=== PATIENT | female | born 1990 | race Caucasian/White ===

== ENCOUNTER → 2016-07-31 | Outpatient (CLI) | payer OTHER ==
[~2016-07-31] MED LIST: /AUGM875TA OR; /CELE20CA OR; /ESCI20TA OR; VICO5TAB OR
== END ==
LOC: M WUC 18:55
PROVIDERS: ATTEND Physician Assistant
DX: N91.1 Secondary amenorrhea (principal)

== ENCOUNTER 2016-08-07 16:47 | Emergency (ER) | payer OTHER ==
[2016-08-07] MEDS ORDERED: diphenhydrAMINE INJ 50MG/ML VIAL (J1200) As Ordered ONE (18:31)
[2016-08-07] MEDS ORDERED: dexameTHASONE 4 MG/ML 1ML VIAL (J1100) As Ordered ONE (18:31)
[2016-08-07] MEDS ORDERED: METOCLOPRAMIDE INJ 10MG/2ML VIAL (J2765) As Ordered ONE (18:31)
[2016-08-07 18:43] LABS: BASO # 0.1 K/mm3 (0.0-0.2); BASO % 1.1 % (0.0-1.0); EOS # 0.2 K/mm3 (0.0-0.50); EOS % 2.7 % (0.0-3.0); LARGE UNSTAINED CELL # 0.3 K/mm3 (0.0-0.4); LARGE UNSTAINED CELL % 3.2 % (0.0-4.0); LYMPH # 3.6 K/mm3 (1.5-6.5); LYMPH % 45.7 % (24.0-44.0); MEAN CORPUSCULAR HEMOGLOBIN 28.2 pg (27.0-33.0); MEAN CORPUSCULAR HGB CONC 34.2 g/dl (32.0-36.5); MEAN CORPUSCULAR VOLUME 82.4 fl (80.0-96.0); MONO # 0.3 K/mm3 (0.0-0.8); MONO % 3.6 % (0.0-5.0); NEUTROPHILS # 3.4 K/mm3 (1.8-7.7); NEUTROPHILS % 43.7 % (36.0-66.0); PLATELET COUNT, AUTOMATED 226 k/mm3 (150-450); RED CELL DISTRIBUTION WIDTH 12.7 % (11.5-14.5); WHITE BLOOD COUNT 7.9 K/mm3 (4.0-10.0)
[2016-08-07 19:04] LABS: ANION GAP 8 MEQ/L (8-16); BLOOD UREA NITROGEN 12 MG/DL (7-18); CALCIUM LEVEL 9.3 MG/DL (8.5-10.1); CARBON DIOXIDE LEVEL 28 MEQ/L (21-32); CHLORIDE LEVEL 105 MEQ/L (98-107); CREATININE FOR GFR 0.76 MG/DL (0.55-1.02); GLOMERULAR FILTRATION RATE > 60.0 (>60); GLUCOSE, FASTING 106 MG/DL (70-105); POTASSIUM SERUM 3.7 MEQ/L (3.5-5.1); SODIUM LEVEL 141 MEQ/L (136-145)
[2016-08-07 19:31] LABS: ERYTHROCYTE SEDIMENTATION RATE 7 mm/hr (0-20)
--- NOTE | 2016-08-07 19:44 | EDDOCDS ---
Physician Documentation [facility] Name: Luis Elizondo Age: 26 yrs Sex: Female : 1990 Arrival Date: 08/07/2016 Time: 16:47 Bed I2 / M2 Private MD: Art Mann Disposition: 08/07/16 19:33 Discharged to Home/Self Care. Impression: Headache. - Condition is Stable. - Discharge Instructions: General Headache Without Cause. - Medication Reconciliation, Local Pharmacy Hours form. - Follow up: Art Mann; When: 1 - 2 days; Reason: Recheck today's complaints, Continuance of care. Follow up: Carli Simeon MD; When: 1 - 2 days; Reason: Recheck today's complaints, Continuance of care. - Problem is new. - Symptoms have improved. - Notes: PLEASE FOLLOW UP WITH YOUR DOCTOR, RETURN TO THE ER IF THE SYMPTOMS WORSEN OR BECOME CONCERNING Historical: - Allergies: no known allergies; - Home Meds: 1. amoxicillin 875 mg oral tab 1 tab every 12 hours 2. migraine med unknown - PMHx: none; - PSHx: (September 21, 2011); Appendectomy; - Social history: Smoking status: Patient states was never smoker of tobacco. No barriers to communication noted, The patient speaks fluent Scottish. - Family history: Not pertinent. - : The pt / caregiver states he / she is not on anticoagulants. Home medication list is obtained from the patient. - Exposure Risk Screening:: None identified. 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 6 in. (167.64 cm) (R); Pain 8/10; 19:25 BP 101 / 59; Pulse 73; Resp 18; Temp 97.5(T); Pulse Ox 100% on R/A; Pain 2/10; lf1 16:49 Body Mass Index 26.63 (74.84 kg, 167.64 cm) ct3 MDM: 18:19 IV Saline Lock ordered. ck7 18:19 NS 0.9% 1000 ml IV at bolus once ordered. ck7 18:19 Metoclopramide 10 mg IV at 40 mg/hr once over 15 mins ordered. ck7 18:19 diphenhydrAMINE 50 mg IVP once ordered. ck7 18:19 Dexamethasone 8 mg IV at bolus once ordered. ck7 18:20 CT Head Without Contrast Ordered. EDMS 18:20 CBC with Diff Ordered. EDMS 18:20 MED Profile Ordered. EDMS 18:20 ESR Ordered. EDMS 18:20 CRP Ordered. EDMS 18:55 Financial registration complete. zo 19:11 CBC with Diff Reviewed. ck7 19:11 MED Profile Reviewed. ck7 19:11 CRP Reviewed. ck7 19:12 ESR Reviewed. ck7 19:18 [facility] [place] Agreement was scanned into [employer] and attached to record. zo 19:33 CBC with Diff Reviewed. ck7 19:33 ESR Reviewed. ck7 Administered Medications: 18:45 Drug: NS 0.9% 1000 ml [sodium chloride 0.9 % intravenous solution] Route: IV; Rate: mk4 bolus; Site: right antecubital; 19:41 Follow up: IV Status: Completed infusion; IV Intake: 1000ml ld5 18:45 Drug: diphenhydrAMINE 50 mg [diphenhydramine 50 mg/mL injection solution (1 mL)] Route: mk4 IVP; Site: right antecubital; 19:29 Follow up: Response: Pain is decreased lf1 18:45 Drug: Dexamethasone 8 mg [dexamethasone 4 mg/mL injection solution] Route: IV; Rate: mk4 bolus; Site: right antecubital; 19:28 Follow up: Response: Pain is decreased lf1 19:43 Follow up: IV Status: Completed infusion ld5 18:46 Drug: Metoclopramide 10 mg [metoclopramide 5 mg/mL injection solution] Route: IV; Rate: mk4 40 mg/hr; Infused Over: 15 mins; Site: right antecubital; 19:29 Follow up: Response: Nausea is decreased; IV Status: Completed infusion; IV Intake: 19alfm1 Signatures: Dispatcher [employer] EDMS Nehal eMlgar Lisa, RN RN lf1 Kalyani Cruz RN RN rs3 Clarisse Enrique RN RN ld5 Thomas Mujica, GURDEEP-C RPA-Cck7 Hayley Cabrera RN mk4 The chart was reviewed and I authenticate all verbal orders and agree with the evaluation and treatment provided.Attachments: 19:18 [facility] [place] Payment Agreement zo MTDD
--- NOTE | 2016-08-07 19:44 | EDDOCDS ---
Nurse's Notes [facility] Name: Luis Elizondo Age: 26 yrs Sex: Female : 1990 Arrival Date: 08/07/2016 Time: 16:47 Bed I2 / M2 Private MD: Art Mann Diagnosis: Headache Presentation: 08/07 16:52 Presenting complaint: Patient states: headache, vomiting for 2 weeks. Was seen at rs3 urgent given amoxicillin 10 days ago. was seen by primary Thursday. given migraine medicine with no symptom relief. Adult Sepsis Screening: The patient does not have new or worsening altered mentation. Patient's respiratory rate is less than 22. Systolic blood pressure is greater than 100. Patient has a qSOFA score of 0- Negative Sepsis Screen. Suicide/Homicide risk assessment- the patient denies having any suicidal and/or homicidal ideations and does not present with any other emotional, behavioral or mental health complaints. Status: Patient is not a industrial servicer or dependent. Transition of care: patient was not received from another setting of care. 16:52 Acuity: CHRISTINE Level 4 rs3 16:52 Method Of Arrival: Walkin/Carried/Asstd rs3 Triage Assessment: 16:55 General: Appears in no apparent distress. Pain: Location: forehead. Pt Declines HIV rs3 testing. 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 amoxicillin 875 mg oral tab 1 tab every 12 hours 2. migraine med unknown - PMHx: none; - PSHx: (September 21, 2011); Appendectomy; - Social history: Smoking status: Patient states was never smoker of tobacco. No barriers to communication noted, The patient speaks fluent Vietnamese. - Family history: Not pertinent. - : The pt / caregiver states he / she is not on anticoagulants. Home medication list is obtained from the patient. - Exposure Risk Screening:: None identified. Screenin:25 Screening information is obtained from the patient. Fall risk: No risks identified. lf1 19:39 Assistance ADL's: requires no assistance with activities of daily living. Abuse/DV ld5 Screen: The patient / caregiver reports he/she is: not in a situation that causes fear, pain or injury. Nutritional screening: No deficits noted. Advance Directives: There is no active DNR order. home support is adequate. Assessment: 19:25 Adult Sepsis Screening: The patient does not have new or worsening altered mentation. lf1 Patient's respiratory rate is less than 22. Systolic blood pressure is greater than 100. Patient has a qSOFA score of 0- Negative Sepsis Screen. General: Appears in no apparent distress, comfortable, Behavior is cooperative, First patient contact. Pain: Location: forehead Pain currently is 2 out of 10 on a pain scale. Neurological: Level of Consciousness is awake, alert, Oriented to person, place, time, Reports headache. EENT: No deficits noted. Respiratory: Respiratory effort is even, unlabored. GI: Denies vomiting, reports nausea has improved. : No deficits noted. Derm: Skin is normal. 19:39 General: Appears in no apparent distress, Behavior is cooperative, pleasant. Pain: ld5 Location: forehead Pain currently is 2 out of 10 on a pain scale. Neurological: Level of Consciousness is awake, alert, obeys commands. Respiratory: Airway is patent Respiratory effort is even, unlabored. GI: Denies nausea, vomiting. Vital Signs: 16:49 BP 106 / 68; Pulse 80; Resp 18; Temp 98.3(O); Pulse Ox 100% on R/A; Weight 74.84 kg ct3 (R); Height 5 ft. 6 in. (167.64 cm) (R); Pain 8/10; 19:25 BP 101 / 59; Pulse 73; Resp 18; Temp 97.5(T); Pulse Ox 100% on R/A; Pain 2/10; lf1 16:49 Body Mass Index 26.63 (74.84 kg, 167.64 cm) ct3 Vitals: 16:49 Log In Time: August 07, 2016 at 16:48. ct3 ED Course: 16:49 Patient visited by Nithya Edwards, LADONNA. ct3 16:49 Art Mann is Private Physician. ct3 16:49 Patient moved to Waiting ct3 16:50 Patient moved to Pre RCE ct3 16:54 Triage Initiated rs3 17:24 Patient moved to Triage 3 ck1 17:25 Patient moved to Pre RCE ck1 18:04 Patient visited by Gladys Guallpa, LADONNA. jb5 18:04 Patient moved to Triage 1 jb5 18:09 [facility] ck7 18:10 Moy Espinosa MD is Attending Physician. ck7 18:10 Patient visited by Thomas Mujica RPA-C. ck7 18:22 Patient moved to I2 / M2 jb5 18:37 Patient visited by Pa Hough RN. mlb1 18:37 CRP Sent. mlb1 18:37 ESR Sent. mlb1 18:37 MED Profile Sent. mlb1 18:37 CBC with Diff Sent. mlb1 18:37 Inserted saline lock: 20 gauge in right antecubital area and blood collected. The mlb1 patient tolerated the procedure well. Labs drawn. (by ED staff). Sent per order to lab. 19:08 Patient visited by Hayley Cabrera RN. mk4 19:18 [facility] Payment Agreement was scanned into [employer] and attached to record. zo 19:25 The patient / caregiver is instructed regarding the plan of care and ED course. Door lf1 closed. Lights dimmed. 19:28 Patient name changed from Luis\S\\S\Kempney\S\ to Luis\S\ \S\Juanmpney. EDMS 19:30 Patient visited by Nayla Ruelas RN. lf1 19:32 Art Mann is Referral Physician. ck7 19:32 Carli Simeon MD is Referral Physician. ck7 19:39 Discontinued lock intact, bleeding controlled, pressure dressing applied, No ld5 redness/swelling at site. No procedures done that require assistance. 19:43 Patient visited by Clarisse Enrique RN. ld5 Administered Medications: 18:45 Drug: NS 0.9% 1000 ml [sodium chloride 0.9 % intravenous solution] Route: IV; Rate: mk4 bolus; Site: right antecubital; 19:41 Follow up: IV Status: Completed infusion; IV Intake: 1000ml ld5 18:45 Drug: diphenhydrAMINE 50 mg [diphenhydramine 50 mg/mL injection solution (1 mL)] Route: mk4 IVP; Site: right antecubital; 19:29 Follow up: Response: Pain is decreased lf1 18:45 Drug: Dexamethasone 8 mg [dexamethasone 4 mg/mL injection solution] Route: IV; Rate: mk4 bolus; Site: right antecubital; 19:28 Follow up: Response: Pain is decreased lf1 19:43 Follow up: IV Status: Completed infusion ld5 18:46 Drug: Metoclopramide 10 mg [metoclopramide 5 mg/mL injection solution] Route: IV; Rate: mk4 40 mg/hr; Infused Over: 15 mins; Site: right antecubital; 19:29 Follow up: Response: Nausea is decreased; IV Status: Completed infusion; IV Intake: 78lccp0 Intake: 19:29 IV: 10.00ml; Total: 10.00ml. lf1 19:41 IV: 1000.00ml; Total: 1010.00ml. ld5 Order Results: Lab Order: CBC with Diff; SPEC'M 08/07/16 18:36 Test: WHITE BLOOD COUNT; Value: 7.9; Range: 4.0-10.0; Units: K/mm3; Status: F Test: RED BLOOD COUNT; Value: 5.16; Range: 4.00-5.40; Units: M/mm3; Status: F Test: HEMOGLOBIN; Value: 14.5; Range: 12.0-16.0; Units: g/dl; Status: F Test: HEMATOCRIT; Value: 42.5; Range: 36.0-47.0; Units: %; Status: F Test: MEAN CORPUSCULAR VOLUME; Value: 82.4; Range: 80.0-96.0; Units: fl; Status: F Test: MEAN CORPUSCULAR HEMOGLOBIN; Value: 28.2; Range: 27.0-33.0; Units: pg; Status: F Test: MEAN CORPUSCULAR HGB CONC; Value: 34.2; Range: 32.0-36.5; Units: g/dl; Status: F Test: RED CELL DISTRIBUTION WIDTH; Value: 12.7; Range: 11.5-14.5; Units: %; Status: F Test: PLATELET COUNT, AUTOMATED; Value: 226; Range: 150-450; Units: k/mm3; Status: F Test: NEUTROPHILS %; Value: 43.7; Range: 36.0-66.0; Units: %; Status: F Test: LYMPH %; Value: 45.7; Range: 24.0-44.0; Abnormal: Above high normal; Units: %; Status: F Test: MONO %; Value: 3.6; Range: 0.0-5.0; Units: %; Status: F Test: EOS %; Value: 2.7; Range: 0.0-3.0; Units: %; Status: F Test: BASO %; Value: 1.1; Range: 0.0-1.0; Abnormal: Above high normal; Units: %; Status: F Test: LARGE UNSTAINED CELL %; Value: 3.2; Range: 0.0-4.0; Units: %; Status: F Test: NEUTROPHILS #; Value: 3.4; Range: 1.8-7.7; Units: K/mm3; Status: F Test: LYMPH #; Value: 3.6; Range: 1.5-6.5; Units: K/mm3; Status: F Test: MONO #; Value: 0.3; Range: 0.0-0.8; Units: K/mm3; Status: F Test: EOS #; Value: 0.2; Range: 0.0-0.50; Units: K/mm3; Status: F Test: BASO #; Value: 0.1; Range: 0.0-0.2; Units: K/mm3; Status: F Test: LARGE UNSTAINED CELL #; Value: 0.3; Range: 0.0-0.4; Units: K/mm3; Status: F Lab Order: MED Profile; [facility]M 08/07/16 18:36 Test: GLUCOSE, FASTING; Value: 106; Range: 70-105; Abnormal: Above high normal; Units: MG/DL; Status: F Test: BLOOD UREA NITROGEN; Value: 12; Range: 7-18; Units: MG/DL; Status: F Test: CREATININE FOR GFR; Value: 0.76; Range: 0.55-1.02; Units: MG/DL; Status: F Test: GLOMERULAR FILTRATION RATE; Value: > 60.0; Range: >60; Status: F Test: SODIUM LEVEL; Value: 141; Range: 136-145; Units: MEQ/L; Status: F Test: POTASSIUM SERUM; Value: 3.7; Range: 3.5-5.1; Units: MEQ/L; Status: F Test: CHLORIDE LEVEL; Value: 105; Range: 98-107; Units: MEQ/L; Status: F Test: CARBON DIOXIDE LEVEL; Value: 28; Range: 21-32; Units: MEQ/L; Status: F Test: ANION GAP; Value: 8; Range: 8-16; Units: MEQ/L; Status: F Test: CALCIUM LEVEL; Value: 9.3; Range: 8.5-10.1; Units: MG/DL; Status: F Test Note: ; Units are mL/min/1.73 m2 Chronic Kidney Disease Staging per NKF: Stage I & II GFR >=60 Normal to Mildly Decreased Stage III GFR 30-59 Moderately Decreased Stage IV GFR 15-29 Severely Decreased Stage V GFR <15 Very Little GFR Left ESRD GFR <15 on [employer]IN[employer]OULTRY Lab Order: ESR; SPEC'M 08/07/16 18:36 Test: ERYTHROCYTE SEDIMENTATION RATE; Value: 7; Range: 0-20; Units: mm/hr; Status: F Lab Order: CRP; SPEC'M 08/07/16 18:36 Test: C REACTIVE PROTEIN QUANTITATIV; Value: < 0.30; Range: 0.00-0.30; Units: MG/DL; Status: F Outcome: 19:33 Discharge ordered by Provider. ck7 19:39 Discharge Assessment: Patient awake, alert and oriented x 3. No cognitive and/or ld5 functional deficits noted. Patient verbalized understanding of disposition instructions. patient administered narcotics - no. The following High Risk Discharge criteria are identified: None. Discharged to home ambulatory. Condition: stable. Discharge instructions given to patient, Instructed on discharge instructions, follow up and referral plans. Demonstrated understanding of instructions, Pt was receptive of discharge instructions/ teaching. No special radiology studies were completed. Property :Personal belongings accompany Pt. 19:43 Patient left the ED. ld5 Signatures: Dispatcher [employer] EDNH Pa Hough RN RN mlb1 Nyasia OliveiraRN RN ck1 Gladys Guallpa, CIVILIAN TECHNICIAN CIVILIAN TECHNICIAN jb5 Nehal Melgar LisaRN RN lf1 Kalyani Cruz RN RN rs3 Clarisse Enrique RN RN ld5 Nithya Edwards, CIVILIAN TECHNICIAN CIVILIAN TECHNICIAN ct3 Thomas Mujica, RPA-C RPA-Cck7 Hayley Cabrera RN RN mk4 MTDD
--- NOTE | 2016-08-08 08:06 | REP ---
Clinical: Headache . Comparison: None . Findings: The ventricles, sulci, and cisterns are normal in position and appearance. Cha-white differentiation is maintained. No acute intracranial hemorrhage, mass/mass effect, pathology or trauma/injury. No evidence for acute infarction. No extra-axial fluid collection. Calvarium is intact. Paranasal sinuses and mastoid air cells are clear. Impression: Normal noncontrast head CT. No evidence for acute intracranial pathology or trauma/injury. Signed by Ganesh Giron MD 08/08/2016 07:57 A
--- NOTE | 2016-08-09 20:44 | EDDOCDS ---
Physician Documentation [facility] Name: Luis Elizondo Age: 26 yrs Sex: Female : 1990 Arrival Date: 08/07/2016 Time: 16:47 Bed I2 / M2 Private MD: Art Mann Disposition: 08/07/16 19:33 Discharged to Home/Self Care. Impression: Headache. - Condition is Stable. - Discharge Instructions: General Headache Without Cause. - Medication Reconciliation, Local Pharmacy Hours form. - Follow up: Art Mann; When: 1 - 2 days; Reason: Recheck today's complaints, Continuance of care. Follow up: Carli Simeon MD; When: 1 - 2 days; Reason: Recheck today's complaints, Continuance of care. - Problem is new. - Symptoms have improved. - Notes: PLEASE FOLLOW UP WITH YOUR DOCTOR, RETURN TO THE ER IF THE SYMPTOMS WORSEN OR BECOME CONCERNING Historical: - Allergies: no known allergies; - Home Meds: 1. amoxicillin 875 mg oral tab 1 tab every 12 hours 2. migraine med unknown - PMHx: none; - PSHx: (September 21, 2011); Appendectomy; - Social history: Smoking status: Patient states was never smoker of tobacco. No barriers to communication noted, The patient speaks fluent Barbadian. - Family history: Not pertinent. - : The pt / caregiver states he / she is not on anticoagulants. Home medication list is obtained from the patient. - Exposure Risk Screening:: None identified. 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 6 in. (167.64 cm) (R); Pain 8/10; 19:25 BP 101 / 59; Pulse 73; Resp 18; Temp 97.5(T); Pulse Ox 100% on R/A; Pain 2/10; lf1 16:49 Body Mass Index 26.63 (74.84 kg, 167.64 cm) ct3 MDM: 18:19 IV Saline Lock ordered. ck7 18:19 NS 0.9% 1000 ml IV at bolus once ordered. ck7 18:19 Metoclopramide 10 mg IV at 40 mg/hr once over 15 mins ordered. ck7 18:19 diphenhydrAMINE 50 mg IVP once ordered. ck7 18:19 Dexamethasone 8 mg IV at bolus once ordered. ck7 18:20 CT Head Without Contrast Ordered. EDMS 18:20 CBC with Diff Ordered. EDMS 18:20 MED Profile Ordered. EDMS 18:20 ESR Ordered. EDMS 18:20 CRP Ordered. EDMS 18:55 Financial registration complete. zo 19:11 CBC with Diff Reviewed. ck7 19:11 MED Profile Reviewed. ck7 19:11 CRP Reviewed. ck7 19:12 ESR Reviewed. ck7 19:18 [facility] [place] Agreement was scanned into [employer] and attached to record. zo 19:33 CBC with Diff Reviewed. ck7 19:33 ESR Reviewed. ck7 08/08 11:30 T-Sheet-- Draft Copy was scanned into [employer] and attached to record. gb 15:10 Radiology Report was scanned into [employer] and attached to record. gb Administered Medications: 08/07 18:45 Drug: NS 0.9% 1000 ml [sodium chloride 0.9 % intravenous solution] Route: IV; Rate: mk4 bolus; Site: right antecubital; 19:41 Follow up: IV Status: Completed infusion; IV Intake: 1000ml ld5 18:45 Drug: diphenhydrAMINE 50 mg [diphenhydramine 50 mg/mL injection solution (1 mL)] Route: mk4 IVP; Site: right antecubital; 19:29 Follow up: Response: Pain is decreased lf1 18:45 Drug: Dexamethasone 8 mg [dexamethasone 4 mg/mL injection solution] Route: IV; Rate: mk4 bolus; Site: right antecubital; 19:28 Follow up: Response: Pain is decreased lf1 19:43 Follow up: IV Status: Completed infusion ld5 18:46 Drug: Metoclopramide 10 mg [metoclopramide 5 mg/mL injection solution] Route: IV; Rate: mk4 40 mg/hr; Infused Over: 15 mins; Site: right antecubital; 19:29 Follow up: Response: Nausea is decreased; IV Status: Completed infusion; IV Intake: [id number] Signatures: Dispatcher [employer] EDMS Chrystal Saleh Reg Reg gb Nehal Melgar LisaRN RN lf1 Kalyani CruzRN RN rs3 Clarisse Enrique RN RN ld5 Thomas Mujica, RPA-C RPA-Cck7 Hayley Cabrera RN mk4 The chart was reviewed and I authenticate all verbal orders and agree with the evaluation and treatment provided.Attachments: 19:18 [facility] [place] Payment Agreement zo 08/08 11:30 T-Sheet-- Draft Copy gb Chart Complete MTDD
--- NOTE | 2016-08-09 20:44 | EDDOCDS ---
Nurse's Notes [facility] Name: Luis Elizondo Age: 26 yrs Sex: Female : 1990 Arrival Date: 08/07/2016 Time: 16:47 Bed I2 / M2 Private MD: Art Mann Diagnosis: Headache Presentation: 08/07 16:52 Presenting complaint: Patient states: headache, vomiting for 2 weeks. Was seen at rs3 urgent given amoxicillin 10 days ago. was seen by primary Thursday. given migraine medicine with no symptom relief. Adult Sepsis Screening: The patient does not have new or worsening altered mentation. Patient's respiratory rate is less than 22. Systolic blood pressure is greater than 100. Patient has a qSOFA score of 0- Negative Sepsis Screen. Suicide/Homicide risk assessment- the patient denies having any suicidal and/or homicidal ideations and does not present with any other emotional, behavioral or mental health complaints. Status: Patient is not a health service coordinator or dependent. Transition of care: patient was not received from another setting of care. 16:52 Acuity: CHRISTINE Level 4 rs3 16:52 Method Of Arrival: Walkin/Carried/Asstd rs3 Triage Assessment: 16:55 General: Appears in no apparent distress. Pain: Location: forehead. Pt Declines HIV rs3 testing. 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 amoxicillin 875 mg oral tab 1 tab every 12 hours 2. migraine med unknown - PMHx: none; - PSHx: (September 21, 2011); Appendectomy; - Social history: Smoking status: Patient states was never smoker of tobacco. No barriers to communication noted, The patient speaks fluent Slovenian. - Family history: Not pertinent. - : The pt / caregiver states he / she is not on anticoagulants. Home medication list is obtained from the patient. - Exposure Risk Screening:: None identified. Screenin:25 Screening information is obtained from the patient. Fall risk: No risks identified. lf1 19:39 Assistance ADL's: requires no assistance with activities of daily living. Abuse/DV ld5 Screen: The patient / caregiver reports he/she is: not in a situation that causes fear, pain or injury. Nutritional screening: No deficits noted. Advance Directives: There is no active DNR order. home support is adequate. Assessment: 19:25 Adult Sepsis Screening: The patient does not have new or worsening altered mentation. lf1 Patient's respiratory rate is less than 22. Systolic blood pressure is greater than 100. Patient has a qSOFA score of 0- Negative Sepsis Screen. General: Appears in no apparent distress, comfortable, Behavior is cooperative, First patient contact. Pain: Location: forehead Pain currently is 2 out of 10 on a pain scale. Neurological: Level of Consciousness is awake, alert, Oriented to person, place, time, Reports headache. EENT: No deficits noted. Respiratory: Respiratory effort is even, unlabored. GI: Denies vomiting, reports nausea has improved. : No deficits noted. Derm: Skin is normal. 19:39 General: Appears in no apparent distress, Behavior is cooperative, pleasant. Pain: ld5 Location: forehead Pain currently is 2 out of 10 on a pain scale. Neurological: Level of Consciousness is awake, alert, obeys commands. Respiratory: Airway is patent Respiratory effort is even, unlabored. GI: Denies nausea, vomiting. Vital Signs: 16:49 BP 106 / 68; Pulse 80; Resp 18; Temp 98.3(O); Pulse Ox 100% on R/A; Weight 74.84 kg ct3 (R); Height 5 ft. 6 in. (167.64 cm) (R); Pain 8/10; 19:25 BP 101 / 59; Pulse 73; Resp 18; Temp 97.5(T); Pulse Ox 100% on R/A; Pain 2/10; lf1 16:49 Body Mass Index 26.63 (74.84 kg, 167.64 cm) ct3 Vitals: 16:49 Log In Time: August 07, 2016 at 16:48. ct3 ED Course: 16:49 Patient visited by Nithya Edwards, LADONNA. ct3 16:49 Art Mann is Private Physician. ct3 16:49 Patient moved to Waiting ct3 16:50 Patient moved to Pre RCE ct3 16:54 Triage Initiated rs3 17:24 Patient moved to Triage 3 ck1 17:25 Patient moved to Pre RCE ck1 18:04 Patient visited by Gladys Guallpa, LADONNA. jb5 18:04 Patient moved to Triage 1 jb5 18:09 Thomas Mujica RPA-C is [facility]. ck7 18:10 Moy Espinosa MD is Attending Physician. ck7 18:10 Patient visited by Thomas Mujica RPA-C. ck7 18:22 Patient moved to I2 / M2 jb5 18:37 Patient visited by Pa Hough RN. mlb1 18:37 CRP Sent. mlb1 18:37 ESR Sent. mlb1 18:37 MED Profile Sent. mlb1 18:37 CBC with Diff Sent. mlb1 18:37 Inserted saline lock: 20 gauge in right antecubital area and blood collected. The mlb1 patient tolerated the procedure well. Labs drawn. (by ED staff). Sent per order to lab. 19:08 Patient visited by Hayley Cabrera RN. mk4 19:18 [facility] Payment Agreement was scanned into [employer] and attached to record. zo 19:25 The patient / caregiver is instructed regarding the plan of care and ED course. Door lf1 closed. Lights dimmed. 19:28 Patient name changed from Luis\S\\S\Kempney\S\ to Luis\S\ \S\Juanmpney. EDMS 19:30 Patient visited by Nayla Ruelas RN. lf1 19:32 Art Mann is Referral Physician. ck7 19:32 Carli Simeon MD is Referral Physician. ck7 19:39 Discontinued lock intact, bleeding controlled, pressure dressing applied, No ld5 redness/swelling at site. No procedures done that require assistance. 19:43 Patient visited by Clarisse Enrique RN. ld5 02 08:16 CT Head Without Contrast Returned. EDMS 11:30 T-Sheet-- Draft Copy was scanned into [employer] and attached to record. gb 15:10 Radiology Report was scanned into [employer] and attached to record. gb Administered Medications: 08/07 18:45 Drug: NS 0.9% 1000 ml [sodium chloride 0.9 % intravenous solution] Route: IV; Rate: mk4 bolus; Site: right antecubital; 19:41 Follow up: IV Status: Completed infusion; IV Intake: 1000ml ld5 18:45 Drug: diphenhydrAMINE 50 mg [diphenhydramine 50 mg/mL injection solution (1 mL)] Route: mk4 IVP; Site: right antecubital; 19:29 Follow up: Response: Pain is decreased lf1 18:45 Drug: Dexamethasone 8 mg [dexamethasone 4 mg/mL injection solution] Route: IV; Rate: mk4 bolus; Site: right antecubital; 19:28 Follow up: Response: Pain is decreased lf1 19:43 Follow up: IV Status: Completed infusion ld5 18:46 Drug: Metoclopramide 10 mg [metoclopramide 5 mg/mL injection solution] Route: IV; Rate: mk4 40 mg/hr; Infused Over: 15 mins; Site: right antecubital; 19:29 Follow up: Response: Nausea is decreased; IV Status: Completed infusion; IV Intake: [id number] Intake: 19:29 IV: 10.00ml; Total: 10.00ml. lf1 19:41 IV: 1000.00ml; Total: 1010.00ml. ld5 Order Results: Lab Order: CBC with Diff; SPEC'M 08/07/16 18:36 Test: WHITE BLOOD COUNT; Value: 7.9; Range: 4.0-10.0; Units: K/mm3; Status: F Test: RED BLOOD COUNT; Value: 5.16; Range: 4.00-5.40; Units: M/mm3; Status: F Test: HEMOGLOBIN; Value: 14.5; Range: 12.0-16.0; Units: g/dl; Status: F Test: HEMATOCRIT; Value: 42.5; Range: 36.0-47.0; Units: %; Status: F Test: MEAN CORPUSCULAR VOLUME; Value: 82.4; Range: 80.0-96.0; Units: fl; Status: F Test: MEAN CORPUSCULAR HEMOGLOBIN; Value: 28.2; Range: 27.0-33.0; Units: pg; Status: F Test: MEAN CORPUSCULAR HGB CONC; Value: 34.2; Range: 32.0-36.5; Units: g/dl; Status: F Test: RED CELL DISTRIBUTION WIDTH; Value: 12.7; Range: 11.5-14.5; Units: %; Status: F Test: PLATELET COUNT, AUTOMATED; Value: 226; Range: 150-450; Units: k/mm3; Status: F Test: NEUTROPHILS %; Value: 43.7; Range: 36.0-66.0; Units: %; Status: F Test: LYMPH %; Value: 45.7; Range: 24.0-44.0; Abnormal: Above high normal; Units: %; Status: F Test: MONO %; Value: 3.6; Range: 0.0-5.0; Units: %; Status: F Test: EOS %; Value: 2.7; Range: 0.0-3.0; Units: %; Status: F Test: BASO %; Value: 1.1; Range: 0.0-1.0; Abnormal: Above high normal; Units: %; Status: F Test: LARGE UNSTAINED CELL %; Value: 3.2; Range: 0.0-4.0; Units: %; Status: F Test: NEUTROPHILS #; Value: 3.4; Range: 1.8-7.7; Units: K/mm3; Status: F Test: LYMPH #; Value: 3.6; Range: 1.5-6.5; Units: K/mm3; Status: F Test: MONO #; Value: 0.3; Range: 0.0-0.8; Units: K/mm3; Status: F Test: EOS #; Value: 0.2; Range: 0.0-0.50; Units: K/mm3; Status: F Test: BASO #; Value: 0.1; Range: 0.0-0.2; Units: K/mm3; Status: F Test: LARGE UNSTAINED CELL #; Value: 0.3; Range: 0.0-0.4; Units: K/mm3; Status: F Lab Order: MED Profile; SPEC'M 08/07/16 18:36 Test: GLUCOSE, FASTING; Value: 106; Range: 70-105; Abnormal: Above high normal; Units: MG/DL; Status: F Test: BLOOD UREA NITROGEN; Value: 12; Range: 7-18; Units: MG/DL; Status: F Test: CREATININE FOR GFR; Value: 0.76; Range: 0.55-1.02; Units: MG/DL; Status: F Test: GLOMERULAR FILTRATION RATE; Value: > 60.0; Range: >60; Status: F Test: SODIUM LEVEL; Value: 141; Range: 136-145; Units: MEQ/L; Status: F Test: POTASSIUM SERUM; Value: 3.7; Range: 3.5-5.1; Units: MEQ/L; Status: F Test: CHLORIDE LEVEL; Value: 105; Range: 98-107; Units: MEQ/L; Status: F Test: CARBON DIOXIDE LEVEL; Value: 28; Range: 21-32; Units: MEQ/L; Status: F Test: ANION GAP; Value: 8; Range: 8-16; Units: MEQ/L; Status: F Test: CALCIUM LEVEL; Value: 9.3; Range: 8.5-10.1; Units: MG/DL; Status: F Test Note: ; Units are mL/min/1.73 m2 Chronic Kidney Disease Staging per NKF: Stage I & II GFR >=60 Normal to Mildly Decreased Stage III GFR 30-59 Moderately Decreased Stage IV GFR 15-29 Severely Decreased Stage V GFR <15 Very Little GFR Left ESRD GFR <15 on ONLINE 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 No acute intracranial hemorrhage,; mass/mass effect, pathology or trauma/injury. No evidence for acute infarction.; No extra-axial fluid collection. Calvarium is intact. Paranasal sinuses and; mastoid air cells are clear.; ; Impression:; Normal noncontrast head CT.; No evidence for acute intracranial pathology or trauma/injury.; ; ; Signed by; Ganesh Giron MD 08/08/2016 07:57 A; Outcome: 19:33 Discharge ordered by Provider. ck7 19:39 Discharge Assessment: Patient awake, alert and oriented x 3. No cognitive and/or ld5 functional deficits noted. Patient verbalized understanding of disposition instructions. patient administered narcotics - no. The following High Risk Discharge criteria are identified: None. Discharged to home ambulatory. Condition: stable. Discharge instructions given to patient, Instructed on discharge instructions, follow up and referral plans. Demonstrated understanding of instructions, Pt was receptive of discharge instructions/ teaching. No special radiology studies were completed. Property :Personal belongings accompany Pt. 19:43 Patient left the ED. ld5 Signatures: Dispatcher [employer] EDMS Chrystal Saleh, Reg Reg gb Pa Hough RN RN mlb1 Nyasia Oliveira,RN RN ck1 Gladys Guallpa, STUDIO DESIGNER STUDIO DESIGNER jb5 Nehal Melgar Lisa,RN RN lf1 Kalyani Cruz,RN RN rs3 Clarisse Enrique,RN RN ld5 Nityha Edwards, STUDIO DESIGNER STUDIO DESIGNER ct3 Thomas Mujica, RPA-C RPA-Cck7 Hayley Cabrera, RN RN mk4 Chart Complete MTDD
--- NOTE | 2016-08-09 20:44 | EDDOCDS ---
Physician Documentation [facility] Name: Luis Elizondo Age: 26 yrs Sex: Female : 1990 Arrival Date: 08/07/2016 Time: 16:47 Bed I2 / M2 Private MD: Art Mann Disposition: 08/07/16 19:33 Discharged to Home/Self Care. Impression: Headache. - Condition is Stable. - Discharge Instructions: General Headache Without Cause. - Medication Reconciliation, Local Pharmacy Hours form. - Follow up: Art Mann; When: 1 - 2 days; Reason: Recheck today's complaints, Continuance of care. Follow up: Carli Simeon MD; When: 1 - 2 days; Reason: Recheck today's complaints, Continuance of care. - Problem is new. - Symptoms have improved. - Notes: PLEASE FOLLOW UP WITH YOUR DOCTOR, RETURN TO THE ER IF THE SYMPTOMS WORSEN OR BECOME CONCERNING Historical: - Allergies: no known allergies; - Home Meds: 1. amoxicillin 875 mg oral tab 1 tab every 12 hours 2. migraine med unknown - PMHx: none; - PSHx: (September 21, 2011); Appendectomy; - Social history: Smoking status: Patient states was never smoker of tobacco. No barriers to communication noted, The patient speaks fluent Moroccan. - Family history: Not pertinent. - : The pt / caregiver states he / she is not on anticoagulants. Home medication list is obtained from the patient. - Exposure Risk Screening:: None identified. FACULTY HEAD: 08/07 16:55 LMP 06/15/2016 rs3 Vital Signs: 16:49 BP 106 / 68; Pulse 80; Resp 18; Temp 98.3(O); Pulse Ox 100% on R/A; Weight 74.84 kg / ct3 164.99 lbs (R); Height 5 ft. 6 in. (167.64 cm) (R); Pain 8/10; 19:25 BP 101 / 59; Pulse 73; Resp 18; Temp 97.5(T); Pulse Ox 100% on R/A; Pain 2/10; lf1 16:49 Body Mass Index 26.63 (74.84 kg, 167.64 cm) ct3 MDM: 18:19 IV Saline Lock ordered. ck7 18:19 NS 0.9% 1000 ml IV at bolus once ordered. ck7 18:19 Metoclopramide 10 mg IV at 40 mg/hr once over 15 mins ordered. ck7 18:19 diphenhydrAMINE 50 mg IVP once ordered. ck7 18:19 Dexamethasone 8 mg IV at bolus once ordered. ck7 18:20 CT Head Without Contrast Ordered. EDMS 18:20 CBC with Diff Ordered. EDMS 18:20 MED Profile Ordered. EDMS 18:20 ESR Ordered. EDMS 18:20 CRP Ordered. EDMS 18:55 Financial registration complete. zo 19:11 CBC with Diff Reviewed. ck7 19:11 MED Profile Reviewed. ck7 19:11 CRP Reviewed. ck7 19:12 ESR Reviewed. ck7 19:18 [facility] Payment Agreement was scanned into [employer] and attached to record. zo 19:33 CBC with Diff Reviewed. ck7 19:33 ESR Reviewed. ck7 08/08 11:30 T-Sheet-- Draft Copy was scanned into [employer] and attached to record. gb 15:10 Radiology Report was scanned into [employer] and attached to record. gb Administered Medications: 08/07 18:45 Drug: NS 0.9% 1000 ml [sodium chloride 0.9 % intravenous solution] Route: IV; Rate: mk4 bolus; Site: right antecubital; 19:41 Follow up: IV Status: Completed infusion; IV Intake: 1000ml ld5 18:45 Drug: diphenhydrAMINE 50 mg [diphenhydramine 50 mg/mL injection solution (1 mL)] Route: mk4 IVP; Site: right antecubital; 19:29 Follow up: Response: Pain is decreased lf1 18:45 Drug: Dexamethasone 8 mg [dexamethasone 4 mg/mL injection solution] Route: IV; Rate: mk4 bolus; Site: right antecubital; 19:28 Follow up: Response: Pain is decreased lf1 19:43 Follow up: IV Status: Completed infusion ld5 18:46 Drug: Metoclopramide 10 mg [metoclopramide 5 mg/mL injection solution] Route: IV; Rate: mk4 40 mg/hr; Infused Over: 15 mins; Site: right antecubital; 19:29 Follow up: Response: Nausea is decreased; IV Status: Completed infusion; IV Intake: [id number] Signatures: Dispatcher [employer] EDMS Chrystal Saleh Reg Reg gb Nehal Melgar LisaRN RN lf1 Kalyani CruzRN RN rs3 Clarisse Enrique RN RN ld5 Thomas Mujica, RPA-C RPA-Cck7 Hayley Cabrera RN mk4 The chart was reviewed and I authenticate all verbal orders and agree with the evaluation and treatment provided.Attachments: 19:18 [facility] [place] Payment Agreement zo 08/08 11:30 T-Sheet-- Draft Copy gb Chart Complete MTDD
== END 2016-08-07 19:43 | disposition home or self-care (01) ==
LOC: M ED 16:47
DX: R51 Headache (principal); Z79.899 Other long term (current) drug therapy
CPT/HCPCS: 36415; 70450; 80048; 85025; 85652; 86140; 96365; 96375; 99284; J1100; J1200; J2765

== ENCOUNTER → 2016-09-02 | Outpatient (REF) | payer OTHER | LOC: M SFHCWAGY 13:00 | PROVIDERS: ATTEND Nurse Practitioner Women's Health | DX: R10.32 Left lower quadrant pain (principal); Z11.3 Encounter for screening for infections with a predominantly sexual mode of transmission ==

== ENCOUNTER → 2016-09-08 | Outpatient (CLI) | payer OTHER ==
--- NOTE | 2016-09-08 12:26 | REP ---
PELVIC ULTRASOUND: Real-time sonographic evaluation of the pelvis is performed utilizing transabdominal and endovaginal technique. The bladder measures 6.3 x 9.7 x 4.0 cm. The uterus measures 9.5 x 3.8 x 5.0 cm. The endometrial thickness 10 mm. There is no endometrial fluid collection. The right ovary measures 4.2 x 2.1 x 3.0 cm and the left ovary 3.3 x 2.2 x 3.0 cm. Paraovarian cyst on the left measures 2.0 x 1.2 x 1.7 cm. No other adnexal mass is seen. There is no free fluid. Blood flow is seen in each ovary with duplex Doppler evaluation, with no torsion, RI of the right ovary is 0.45 and left ovary 0.47. IMPRESSION: Paraovarian cyst on the left measures 2.0 x 1.2 x 1.7 cm. No other significant finding.
== END ==
LOC: M WHC 10:59
PROVIDERS: ATTEND Nurse Practitioner Women's Health
DX: R10.32 Left lower quadrant pain (principal); Z87.42 Personal history of other diseases of the female genital tract

== ENCOUNTER → 2017-03-30 | Outpatient (REF) | payer OTHER | LOC: M SFHCWAGY 10:07 | PROVIDERS: ATTEND Nurse Practitioner Women's Health | DX: Z12.4 Encounter for screening for malignant neoplasm of cervix (principal); N76.0 Acute vaginitis ==

== ENCOUNTER → 2018-04-06 | Outpatient (REF) | payer OTHER ==
[2018-04-06 13:52] LABS: HEMATOCRIT 40.6 % (36.0-47.0); HEMOGLOBIN 13.6 g/dl (12.0-15.5); MEAN CORPUSCULAR HEMOGLOBIN 28.7 pg (27.0-33.0); MEAN CORPUSCULAR HGB CONC 33.5 g/dl (32.0-36.5); MEAN CORPUSCULAR VOLUME 85.7 fl (80.0-96.0); PLATELET COUNT, AUTOMATED 223 10^3/uL (150-450); RED BLOOD COUNT 4.74 10^6/uL (4.00-5.40); RED CELL DISTRIBUTION WIDTH 12.4 % (11.5-14.5); WHITE BLOOD COUNT 9.1 10^3/uL (4.0-10.0)
[2018-04-06 14:34] LABS: HCG, SERUM QUANTITATIVE 121496 MIU/ML
[2018-04-07 10:44] LABS: RUBELLA IgG QUALITATIVE IMMUNE (IMMUNE)
[2018-04-07 11:12] LABS: HEPATITIS C VIRUS ABY INDEX < 0.0 INDEX (<0.8)
[2018-04-07 11:13] LABS: HIV 1&2 SCREEN CENTAUR NEGATIVE (NEGATIVE)
[2018-04-07 13:26] LABS: HBsAg Prenatal NEGATIVE (NEGATIVE)
== END ==
LOC: M LAB REF 13:20
DX: O36.80X0 Pregnancy with inconclusive fetal viability, not applicable or unspecified (principal); Z3A.00 Weeks of gestation of pregnancy not specified
CPT/HCPCS: 86762

== ENCOUNTER → 2018-04-16 | Outpatient (REF) | payer OTHER | LOC: M LAB REF 15:33 | DX: R30.0 Dysuria (principal); R35.8 Other polyuria | CPT/HCPCS: 87086 ==

== ENCOUNTER → 2018-08-07 | Outpatient (CLI) | payer OTHER ==
[2018-08-07 19:00] LABS: HEMATOCRIT 36.7 % (36.0-47.0); HEMOGLOBIN 11.7 g/dl (12.0-15.5); MEAN CORPUSCULAR HEMOGLOBIN 27.7 pg (27.0-33.0); MEAN CORPUSCULAR HGB CONC 31.9 g/dl (32.0-36.5); MEAN CORPUSCULAR VOLUME 86.8 fl (80.0-96.0); PLATELET COUNT, AUTOMATED 206 10^3/uL (150-450); RED BLOOD COUNT 4.23 10^6/uL (4.00-5.40); WHITE BLOOD COUNT 10.3 10^3/uL (4.0-10.0)
== END ==
LOC: M WUC 12:22
PROVIDERS: ATTEND Obstetrics & Gynecology
DX: Z34.83 Encounter for supervision of other normal pregnancy, third trimester (principal); Z3A.25 25 weeks gestation of pregnancy

== ENCOUNTER → 2018-08-19 | Outpatient (REF) | payer OTHER, BC | LOC: M LAB REF 12:36 | PROVIDERS: ATTEND Obstetrics & Gynecology | DX: Z34.82 Encounter for supervision of other normal pregnancy, second trimester (principal); Z3A.00 Weeks of gestation of pregnancy not specified ==

== ENCOUNTER → 2018-10-07 | Outpatient (REF) | payer BC, OTHER ==
[~2018-10-07] MED LIST changes: -/CELE20CA OR; -/ESCI20TA OR; +CELE1CAP4 OR; +LEXA1TAB2 OR
== END ==
LOC: M LAB REF 12:25
PROVIDERS: ATTEND Obstetrics & Gynecology
DX: Z34.83 Encounter for supervision of other normal pregnancy, third trimester (principal); Z3A.00 Weeks of gestation of pregnancy not specified

== ENCOUNTER 2018-11-02 08:33 | Inpatient (IN) | payer BC ==
[~2018-11-02] VITALS: Ht 167.6 cm; Wt 98.7 kg
[2018-11-02] VITALS (8 sets, daily range): BP systolic 95–119; BP diastolic 52–72
[~2018-11-02 08:33] MED LIST changes: +LACTATED RINGER'S 1000 ML IV STA; +LR 1,000 ML IV SCH; +MULTCAP PO; +SUMA100T2 PO
[2018-11-02] MEDS ORDERED: BICITRA 30ML SOLN UDC PO ONE (08:45)
[2018-11-02] MEDS: PRENATAL VITAMINS CHEWABLE TABLET PO SCH (09:00)
[2018-11-02] MEDS: DOCUSATE SODIUM 100 MG CAP PO SCH ×2 (09:00→20:31)
[2018-11-02 09:39] LABS: HEMATOCRIT 35.4 % (36.0-47.0); HEMOGLOBIN 11.4 g/dl (12.0-15.5); MEAN CORPUSCULAR HEMOGLOBIN 25.7 pg (27.0-33.0); MEAN CORPUSCULAR HGB CONC 32.2 g/dl (32.0-36.5); MEAN CORPUSCULAR VOLUME 79.7 fl (80.0-96.0); PLATELET COUNT, AUTOMATED 230 10^3/uL (150-450); RED BLOOD COUNT 4.44 10^6/uL (4.00-5.40); WHITE BLOOD COUNT 8.1 10^3/uL (4.0-10.0)
[2018-11-02] MEDS ORDERED: OXYTOCIN INJ 10 UNITS/ML VIAL (J2590) As Ordered ONE (10:05)
[2018-11-02] MEDS ORDERED: BUPIVACAINE/DEXTROSE 0.75% 2 ML AMP As Ordered ONE (10:09)
[2018-11-02] MEDS ORDERED: ONDANSETRON 4MG/2ML VIAL (J2405) As Ordered ONE (10:09)
[2018-11-02] MEDS ORDERED: MORPHINE PRES-FREE INJ 10 MG/10 ML VIAL (J2274) As Ordered ONE (10:10)
[2018-11-02] MEDS ORDERED: NALBUPHINE HCL 10 MG/ML AMP (J2300) IV PRN (10:55)
[2018-11-02] MEDS ORDERED: diphenhydrAMINE INJ 50MG/ML VIAL (J1200) IV PRN (10:55)
[2018-11-02] MEDS ORDERED: METOCLOPRAMIDE INJ 10MG/2ML VIAL (J2765) IV PRN ×2 (10:55→12:15)
[2018-11-02] MEDS ORDERED: ONDANSETRON 4MG/2ML VIAL (J2405) IV PRN ×3 (10:55→12:15)
[2018-11-02] MEDS ORDERED: NALOXONE INJ 0.4 MG/1 ML VIAL (J2310) IV PRN ×2 (10:55)
[2018-11-02] MEDS ORDERED: MOM 30ML SUSPENSION UDC PO PRN (11:00)
[2018-11-02] MEDS ORDERED: ACETAMINOPHEN 500 MG TAB PO PRN (11:00)
[2018-11-02] MEDS ORDERED: ACETAMINOPHEN TAB 650MG DOSE (2X325MG) PO PRN (11:00)
[2018-11-02] MEDS ORDERED: OXYTOCIN DRIP 30 UNITS in APPROPRIATE DILUENT 1 EA IV SCH (11:00)
[2018-11-02] MEDS ORDERED: RHOGAM 300 MCG (1500 IU) INJ (J2790) IM SCH (11:00)
[2018-11-02] MEDS ORDERED: MEASLES,MUMPS,RUBELLA VACCINE INJ (MMR-II) (90707) SC SCH (11:00)
[2018-11-02 11:25] LABS: CORD GAS ABE V -3.1; CORD GAS HCO3 V 22.9 MEQ/L; CORD GAS O2 SAT V 70.4 %; CORD GAS PCO2 V 44.4 mmHg; CORD GAS PH V 7.33 UNITS; CORD GAS PO2 V 31.5 mmHg; CORD GAS SBC V 21.3 MEQ/L; CORD GAS TCO2 V 24.2 MEQ/L
[2018-11-02 11:34] LABS: CORD GAS ABE A -3.8; CORD GAS HCO3 A 22.6 MEQ/L; CORD GAS O2 SAT A 31.6 %; CORD GAS PCO2 A 46.2 mmHg; CORD GAS PH A 7.308 UNITS; CORD GAS PO2 A 17.6 mmHg; CORD GAS SBC A 19.9 MEQ/L; CORD GAS TCO2 A 24.1 MEQ/L
[2018-11-02] MEDS ORDERED: PHENYLephrine HCL 500 MCG/5 ML (100MCG/ML) SYRINGE (J2370) As Ordered ONE (11:49)
[2018-11-02] MEDS ORDERED: KETOROLAC 60 MG/2 ML VIAL (J1885) As Ordered ONE (11:49)
[2018-11-02] MEDS ORDERED: ePHEDrine SULFATE 25 MG/5 ML(5MG/ML) SYRINGE As Ordered ONE (11:49)
[2018-11-02] MEDS ORDERED: fentaNYL 100 MCG/2 ML INJECTION (J3010) IV PRN (12:15)
[2018-11-02] MEDS ORDERED: PERCOCET 5MG/325MG TAB PO PRN (12:15)
[2018-11-02] MEDS ORDERED: LR 1,000 ML IV SCH (12:15)
[2018-11-02] MEDS ORDERED: OXYTOCIN 30 UNITS IN 0.9% NaCl 500ML IV BAG (J2590) As Ordered ONE (13:07)
[2018-11-02] MEDS: IBUPROFEN 800 MG TAB PO SCH (20:31)
[2018-11-03 02:13] VITALS: BP 96/53
[2018-11-03] MEDS: IBUPROFEN 800 MG TAB PO SCH ×3 (04:00→20:20)
[2018-11-03 06:10] VITALS: BP 107/56
[2018-11-03 06:46] LABS: HEMATOCRIT 25.6 % (36.0-47.0); MEAN CORPUSCULAR HEMOGLOBIN 25.5 pg (27.0-33.0); MEAN CORPUSCULAR VOLUME 79.5 fl (80.0-96.0); PLATELET COUNT, AUTOMATED 171 10^3/uL (150-450); RED BLOOD COUNT 3.22 10^6/uL (4.00-5.40); WHITE BLOOD COUNT 9.3 10^3/uL (4.0-10.0)
[2018-11-03 06:55] LABS: HEMOGLOBIN 8.2 g/dl (12.0-15.5)
[2018-11-03 10:00] VITALS: BP 113/62
[2018-11-03] MEDS: DOCUSATE SODIUM 100 MG CAP PO SCH ×2 (10:21→20:20)
[2018-11-03] MEDS: PRENATAL VITAMINS CHEWABLE TABLET PO SCH (10:22)
--- NOTE | 2018-11-03 12:14 | RO ---
DATE OF PROCEDURE: 11/03/2018 Luis is a 28-year-old female, 2, para 1-0-0-1, with a history of prior section who is being admitted for an elective repeat section at term. Upon admission, no complaints. PREOPERATIVE DIAGNOSIS: Term for elective repeat section. POSTOPERATIVE DIAGNOSES: 1. Term for elective repeat section. 2. macrosomia. 3. Light meconium. PROCEDURE: 1. Repeat section. 2. Revision of old scar. SURGEON: Dr. Masoud Keys PLUMBING FOREMAN: Dr. Eleanor Barroso ANESTHESIA: Spinal. COMPLICATIONS: None. ESTIMATED BLOOD LOSS: 600 mL. FINDINGS: Male infant. 9 and 9. weight 10 pounds 3 ounces. Normal-appearing tubes and ovaries. OPERATIVE PROCEDURE: After obtaining informed consent, the patient was taken to the operating room where spinal anesthetic was found to be adequate. She was then draped and prepped in the usual sterile fashion in the supine position. At this point, an elliptical incision was made over the old scar. The incision was carried down to the fascia. Fascia was incised in midline fashion and carried through laterally. Superior aspect of the fascia was then grasped with two Porfirio clamps, tented off and dissected off in a similar fashion with the help of my city carrier assistant Dr. Barroso. We then placed a Mobius skin retractor. The was delivered in atraumatic fashion after making a low-transverse uterine incision. The incision was then repaired in two separate layers of #0 Vicryl sutures. All superficial bleeders were coagulated. The pelvis was copiously irrigated with normal saline and suctioned out. Attention turned to the peritoneum which was closed in running fashion using #2-0 Vicryl. Fascia closed in two separate segments of #0 Vicryl sutures. All superficial bleeders were coagulated. The skin was reapproximated in subcuticular fashion using #3-0 Vicryl on a Nic. The patient tolerated the procedure well. She was then transferred to the recovery room in stable condition.
[2018-11-03 13:45] VITALS: BP 127/60
[2018-11-03] MEDS: PERCOCET 5MG/325MG TAB PO PRN ×2 (14:55→21:35)
[2018-11-03 18:00] VITALS: BP 134/68
[2018-11-03 21:44] VITALS: BP 113/64
[2018-11-04 01:57] VITALS: BP 122/79
[2018-11-04] MEDS: IBUPROFEN 800 MG TAB PO SCH (04:28)
[2018-11-04 05:45] VITALS: BP 108/55
[2018-11-04] MEDS: DOCUSATE SODIUM 100 MG CAP PO SCH (07:41)
[2018-11-04] MEDS: PRENATAL VITAMINS CHEWABLE TABLET PO SCH (07:41)
[2018-11-04] MEDS ORDERED: IBUP80TA PO (09:49)
[2018-11-04] MEDS ORDERED: ACET-897 PO (09:55)
[2018-11-04 10:00] VITALS: BP 130/80
== END 2018-11-04 11:20 | disposition home or self-care (01) | DRG 540 ==
LOC: M LDI 08:33 → M OBS 13:53
PROVIDERS: ADMIT Obstetrics & Gynecology; ATTEND Obstetrics & Gynecology
PROC: 10D00Z1 Extraction of Products of Conception, Low, Open Approach (ICD-10-PCS; principal; 2018-11-03)
DX: O34.211 Maternal care for low transverse scar from previous cesarean delivery (principal); O36.63X0 Maternal care for excessive fetal growth, third trimester, not applicable or unspecified; Z37.0 Single live birth; Z3A.39 39 weeks gestation of pregnancy; O77.0 Labor and delivery complicated by meconium in amniotic fluid

== ENCOUNTER → 2020-06-26 | Outpatient (CLI) | payer SELFPAY ==
[~2020-06-26] MED LIST changes: +ACET-897 PO; +IBUP80TA PO; -LACTATED RINGER'S 1000 ML IV STA; -LR 1,000 ML IV SCH
== END ==
LOC: M LABSMTC 12:59
PROVIDERS: ATTEND Pediatrics
DX: Z20.822 Contact with and (suspected) exposure to COVID-19 (principal)

== ENCOUNTER 2021-05-06 16:25 | Emergency (ER) | payer BC ==
[~2021-05-06] VITALS: Ht 167.6 cm; Wt 84.5 kg
[2021-05-06 16:26] VITALS: BP 172/113
--- OUTSIDE RECORDS SUMMARY | 2021-05-06 16:38 | CCD ---
Author Author [facility] Organization 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 Name Role Phone Tammy, Ivette DANIELP-C Unavailable [facility]ailabl e [facility] Unavailable Unavailabl e [facility] Unavailable Unavailabl e [facility], [facility] Lyudmila DANIELP-C Unavailable Unavailabl e Tammy, [facility] Lyudmila DANIELP-C Unavailable Unavailabl e [facility], [facility] Unavailable Unavailabl e Tammy, Ivette DANIELP-C Unavailable Unavailabl e [facility], [facility] Unavailable Unavailabl e [facility], [facility] Unavailable Unavailabl e [facility], [facility] Unavailable Unavailabl e [facility], [facility] Unavailable Unavailabl e Tammy, Ivette Munozyce PACKAGE WORKER-C Unavailable Unavailabl e Tammy, Ivette W Maria E PACKAGE WORKER-C Unavailable Unavailabl e Tammy, Ivette W Maria E PACKAGE WORKER-C Unavailable Unavailabl e Tammy, Ivette W Maria E PACKAGE WORKER-C Unavailable Unavailabl e Tammy, Ivette W Maria E PACKAGE WORKER-C Unavailable Unavailabl e Tamym, Ivette W Maria E PACKAGE WORKER-C Unavailable Unavailabl e Tammy, Carlosinabk W Maria E PACKAGE WORKER-C Unavailable Unavailabl e Tammy, Reginabk W Maria E PACKAGE WORKER-C Unavailable Unavailabl e Tammy, Carlosinabk W Maria E PACKAGE WORKER-C Unavailable Unavailabl e Tammy, Ivette W Maria E PACKAGE WORKER-C Unavailable Unavailabl e Tammy, Ivette W Maria E PACKAGE WORKER-C Unavailable Unavailabl e Tammy, Ivette W Maria E PACKAGE WORKER-C Unavailable Unavailabl e Tammy, Ivette W Maria E PACKAGE WORKER-C Unavailable Unavailabl e Tammy, Ivette W Maria E PACKAGE WORKER-C Unavailable Unavailabl e Tammy, Ivette W Maria E PACKAGE WORKER-C Unavailable Unavailabl e Tammy, Ivette W Maria E PACKAGE WORKER-C Unavailable Unavailabl e Tammy, Ivetet W Maria E PACKAGE WORKER-C Unavailable Unavailabl e Tammy, Ivette W Maria E PACKAGE WORKER-C Unavailable Unavailabl e Tammy, Ivette W Maria E PACKAGE WORKER-C Unavailable Unavailabl e Tammy, Ivette W Maria E PACKAGE WORKER-C Unavailable Unavailabl e Tammy, Regmonae W Maria E PACKAGE WORKER-C Unavailable Unavailabl Bk Hines MD Unavailable Unavailable Bk NO MD Unavailable Unavailable Bk ON MD Unavailable Unavailable Bk NO MD Unavailable Unavailable Bk NO MD Unavailable Unavailable Bk NO MD Unavailable Unavailable Bk NO MD Unavailable Unavailable Bk NO MD Unavailable Unavailable Bk NO MD Unavailable Unavailable Bk NO MD Unavailable Unavailable Bk NO MD Unavailable Unavailable Bk NO MD Unavailable Unavailable Bk NO MD Unavailable Unavailable Bk NO MD Unavailable Unavailable ONEAL, H BEBA MD Unavailable Unavailable ONEAL, H BEBA MD Unavailable Unavailable ONEAL, H BEBA MD Unavailable Unavailable ONEAL, H BEBA MD Unavailable Unavailable ONEAL, H BEBA MD Unavailable Unavailable ONEAL, H BEBA MD Unavailable Unavailable ONEAL, H BEBA MD Unavailable Unavailable ONEAL, H BEBA MD Unavailable Unavailable ONEAL, H BEBA MD Unavailable Unavailable ONEAL, H BEBA MD Unavailable Unavailable ONEAL, H BEBA MD Unavailable Unavailable ONEAL, H BEBA MD Unavailable Unavailable ONEAL, H BEBA MD Unavailable Unavailable ONEAL, H BEBA MD Unavailable Unavailable ONEAL, H BEBA MD Unavailable Unavailable ONEAL, H BEBA MD Unavailable Unavailable ONEAL, H BEBA MD Unavailable Unavailable ONEAL, H BEBA MD Unavailable Unavailable ONEAL, H BEBA MD Unavailable Unavailable ONEAL, H BEBA MD Unavailable Unavailable ONEAL, H BEBA MD Unavailable Unavailable ONEAL, H BEBA MD Unavailable Unavailable ONEAL, H BEBA MD Unavailable Unavailable ONEAL, H BEBA MD Unavailable Unavailable ONEAL, H BEBA MD Unavailable Unavailable ONEAL, H BEBA MD Unavailable Unavailable ONEAL, H BEBA MD Unavailable Unavailable ONEAL, H BEBA MD Unavailable Unavailable ONEAL, H BEBA MD Unavailable Unavailable ONEAL, H BEBA MD Unavailable Unavailable ONEAL, H BEBA MD Unavailable Unavailable ONEAL, H BEBA MD Unavailable Unavailable ONEAL, H BEBA MD Unavailable Unavailable ONEAL, H BEBA MD Unavailable Unavailable ONEAL, H BEBA MD Unavailable Unavailable ONEAL, H BEBA MD Unavailable Unavailable ONEAL, H BEBA MD Unavailable Unavailable ONEAL, H BEBA MD Unavailable Unavailable ONEAL, H BEBA MD Unavailable Unavailable ONEAL, H BEBA MD Unavailable Unavailable ONEAL, H BEBA MD Unavailable Unavailable ONEAL, H BEBA MD Unavailable Unavailable ONEAL, H BEBA MD Unavailable Unavailable ONEAL, H BEBA MD Unavailable Unavailable ONEAL, H BEBA MD Unavailable Unavailable ONEAL, H BEBA MD Unavailable Unavailable ONEAL, H BEBA MD Unavailable Unavailable ONEAL, H BEBA MD Unavailable Unavailable ONEAL, H BEBA MD Unavailable Unavailable ONEAL, H BEBA MD Unavailable Unavailable ONEAL, H BEBA MD Unavailable Unavailable ONEAL, H BEBA MD Unavailable Unavailable ONEAL, H BEBA MD Unavailable Unavailable ONEAL, H BEBA MD Unavailable Unavailable ONEAL, H BEBA MD Unavailable Unavailable ONEAL, H BEBA MD Unavailable Unavailable ONEAL, H BEBA MD Unavailable Unavailable ONEAL, H BEBA MD Unavailable Unavailable ONEAL, H BEBA MD Unavailable Unavailable ONEAL, H BEBA MD Unavailable Unavailable ONEAL, H BEBA MD Unavailable Unavailable ONEAL, H BBEA MD Unavailable Unavailable Re-disclosure Warning The records that you are about to access may contain information from federally-assisted alcohol or drug abuse programs. If such information is present, then the following federally mandated warning applies: This information has been disclosed to you from records protected by federal confidentiality rules (42 CFR part 2). The federal rules prohibit you from making any further disclosure of this information unless further disclosure is expressly permitted by the written consent of the person to whom it pertains or as otherwise permitted by 42 CFR part 2. A general authorization for the release of medical or other information is NOT sufficient for this purpose. The Federal rules restrict any use of the information to criminally investigate or prosecute any alcohol or drug abuse patient.The records that you are about to access may contain highly sensitive health information, the redisclosure of which is protected by Article 27-F of the [facility] Public Health law. If you continue you may have access to information: Regarding HIV / AIDS; Provided by facilities licensed or operated by the [facility] Office of Mental Health; or Provided by the [facility] Office for People With Developmental Disabilities. If such information is present, then the following [facility] mandated warning applies: This information has been disclosed to you from confidential records which are protected by state law. State law prohibits you from making any further disclosure of this information without the specific written consent of the person to whom it pertains, or as otherwise permitted by law. Any unauthorized further disclosure in violation of state law may result in a fine or fci sentence or both. A general authorization for the release of medical or other information is NOT sufficient authorization for further disc losure. Family History Family Member Name Family Member Gender Family Member Status Date o f Status Description Data Source(s) Unknown Unknown Problem [facility] ([facility]) Unknown Unknown Problem [facility] ([facility] Encounters Encounter Providers Location Date Indications Data Source(s ) Outpatient Attender: BEBA [facility] 10:20:00 AM EDT [facility] ([facility] Outpatient Attender: BEBA [facility] 02:00:00 PM EDT [facility] ([facility] Outpatient Attender: Maria E MEJIA 03/28/2020 08:14:0 0 AM [facility] Immunizations Vaccine Date Status Description Data Source(s) COVID-19 VACCINE Moderna 07/20/2020 12:00:00 AM EST completed [facility] Vaccine Series Complete: YESThis Data wa s Submitted to [facility] Via [facility]. COVID-19 VACCINE Moderna 06/20/2020 12:00:00 AM EST [facility]: NOThis Data was Submitted to [facility] Via [facility]. Medications Medication Brand Name Start Date Product Form Dose Route Admi nistrative Instructions Pharmacy Instructions Status Indications Reaction Description Data Source(s) Escitalopram 10 MG Oral Tablet ESCITALOPRAM OXALATE 04/06/2021 1 2:00:00 AM EDT tablet 30 TAKE ONE TABLET BY MOUTH EVERY D AY TAKE ONE TABLET BY MOUTH EVERY DAY SOLD: 04/06/2021 [facility] 4 mg/actuation 03/14/2021 12:00:00 AM EDT spray,non-aerosol 2 USE DIRECTED FOR SUSPECTED OPIOID OVERDOSE PATIENT IS A TRAINED OPIOID OVERDOSE RESPONDER USE DIRECTED FOR SUSPECTED OPIOID OVE RDOSE PATIENT IS A TRAINED OPIOID OVERDOSE RESPONDER SOLD: 03/18/2021 [facility] Escitalopram 10 MG Oral Tablet ESCITALOPRAM OXALATE 03/08/2021 1 2:00:00 AM EDT tablet 30 TAKE ONE TABLET BY MOUTH EVERY D AY TAKE ONE TABLET BY MOUTH EVERY DAY SOLD: 03/09/2021 [facility] Escitalopram 10 MG Oral Tablet ESCITALOPRAM OXALATE 10/03/2020 1 2:00:00 AM EDT tablet 30 TAKE ONE TABLET BY MOUTH EVERY D AY TAKE ONE TABLET BY MOUTH EVERY DAY SOLD: 10/11/2020 [facility] Escitalopram 10 MG Oral Tablet ESCITALOPRAM OXALATE 10/03/2020 1 2:00:00 AM EDT tablet 30 TAKE ONE TABLET BY MOUTH EVERY D AY TAKE ONE TABLET BY MOUTH EVERY DAY SOLD: 12/10/2020 [facility] Escitalopram 10 MG Oral Tablet ESCITALOPRAM OXALATE 10/03/2020 1 2:00:00 AM EDT tablet 30 TAKE ONE TABLET BY MOUTH EVERY D AY TAKE ONE TABLET BY MOUTH EVERY DAY SOLD: 11/09/2020 [facility] Escitalopram 10 MG Oral Tablet ESCITALOPRAM OXALATE 10/03/2020 1 2:00:00 AM EDT tablet 30 TAKE ONE TABLET BY MOUTH EVERY D AY TAKE ONE TABLET BY MOUTH EVERY DAY SOLD: 01/09/2021 [facility] Escitalopram 10 MG Oral Tablet ESCITALOPRAM OXALATE 07/09/2020 1 2:00:00 AM EST tablet 30 TAKE ONE TABLET BY MOUTH EVERY D AY TAKE ONE TABLET BY MOUTH EVERY DAY SOLD: 09/10/2020 [facility] Escitalopram 10 MG Oral Tablet ESCITALOPRAM OXALATE 07/09/2020 1 2:00:00 AM EST tablet 30 TAKE ONE TABLET BY MOUTH EVERY D AY TAKE ONE TABLET BY MOUTH EVERY DAY SOLD: 08/10/2020 [facility] Escitalopram 10 MG Oral Tablet ESCITALOPRAM OXALATE 07/09/2020 1 2:00:00 AM EST tablet 30 TAKE ONE TABLET BY MOUTH EVERY D AY TAKE ONE TABLET BY MOUTH EVERY DAY SOLD: 07/09/2020 [facility] Escitalopram 10 MG Oral Tablet ESCITALOPRAM OXALATE 02/20/2020 1 2:00:00 AM EDT tablet 30 TAKE ONE TABLET BY MOUTH EVERY D AY TAKE ONE TABLET BY MOUTH EVERY DAY SOLD: 04/04/2020 [facility] Escitalopram 10 MG Oral Tablet ESCITALOPRAM OXALATE 02/20/2020 1 2:00:00 AM EDT tablet 30 TAKE ONE TABLET BY MOUTH EVERY D AY TAKE ONE TABLET BY MOUTH EVERY DAY SOLD: 05/07/2020 [facility] Escitalopram 10 MG Oral Tablet ESCITALOPRAM OXALATE 02/20/2020 1 2:00:00 AM EDT tablet 30 TAKE ONE TABLET BY MOUTH EVERY D AY TAKE ONE TABLET BY MOUTH EVERY DAY SOLD: 06/07/2020 [facility] Insurance Providers Payer name Policy type / Coverage type Policy ID Covered alliance party ID Covered alliance party's relationship to mercer Policy Mercer Plan Information [place] [facility] 302/[phone] [id number] SP [id number] SELF PAY UNAVAILABLE S UNAVAILA BLE [place] 302/307 [id number] SP [id number] [facility] [id number] [facility] [id number] [facility] Plan Commercial [id number] Self [id number] Medicaid Medigap Part B [id number] Self [id number] [facility] Health Maintenance Organization (HMO) [id number] Self [id number] [facility] Health Maintenance Organization (O) [id number] Self SELF PAY ONLY UNAVAILABLE SP UNAV AILABLE [facility] [id number] [facility] 02 [id number] [facility] [id number] [facility] DIV [id number] SELF PAY ONLY [id number] SP [id number] Problems, Conditions, and Diagnoses Code Display Name Description Problem Type Effective Dates Data Source(s) Z11.1 Encounter for screening for respiratory tuberculosis ENCOUNTER FOR SCREENING FOR RESPIRATORY TUBERCULOSIS Diagnosis 03/28/2020 08:14:00 A M [facility] Surgeries/Procedures Procedure Description Date Indications Data Source(s) OFFICE OUTPATIENT VISIT 25 MINUTES 04/08/2021 12:00:00 AM EDT [facility] ([facility] Results ID Date Data Source [id number] 04/08/2021 10:39:00 AM EDT [facility] ([facility] Name Value Range Interpretation Code Description Data Karen rce(s) Supporting Document(s) BUN 11 mg/dL 8-23 [facility] ([facility] CHRONIC KIDNEY DISEASE STAGING PER NKF: MALE GFR INTERPRETATION: 20-49 YRS: >60 mL/min Normal 50-59 YRS: >56 mL/min Normal 60-69 YRS: >49 mL/min Normal 70-79 YRS: >42 mL/min Normal 80 and above >35 mL/min Normal FEMALE GRF INTERPRETATION: 20-39 YRS: >60 mL/min Normal 40-49 YRS: >58 mL/min Normal 50-59 YRS: >51 mL/min Normal 60-69 YRS: >45 mL/min Normal 70-79 YRS: >39 mL/min Normal 80 and above >32 mL/min Normal Glu 89 mg/dL 70-110 [facility] ([facility] CHRONIC KIDNEY DISEASE STAGING PER NKF: MALE GFR INTERPRETATION: 20-49 YRS: >60 mL/min Normal 50-59 YRS: >56 mL/min Normal 60-69 YRS: >49 mL/min Normal 70-79 YRS: >42 mL/min Normal 80 and above >35 mL/min Normal FEMALE GRF INTERPRETATION: 20-39 YRS: >60 mL/min Normal 40-49 YRS: >58 mL/min Normal 50-59 YRS: >51 mL/min Normal 60-69 YRS: >45 mL/min Normal 70-79 YRS: >39 mL/min Normal 80 and above >32 mL/min Normal Creat 0.8 mg/dL 0.5-1.0 [facility] ([facility] CHRONIC KIDNEY DISEASE STAGING PER NKF: MALE GFR INTERPRETATION: 20-49 YRS: >60 mL/min Normal 50-59 YRS: >56 mL/min Normal 60-69 YRS: >49 mL/min Normal 70-79 YRS: >42 mL/min Normal 80 and above >35 mL/min Normal FEMALE GRF INTERPRETATION: 20-39 YRS: >60 mL/min Normal 40-49 YRS: >58 mL/min Normal 50-59 YRS: >51 mL/min Normal 60-69 YRS: >45 mL/min Normal 70-79 YRS: >39 mL/min Normal 80 and above >32 mL/min Normal BUN/Creatinine Ratio 14.6 Calc [facility] ([facility] CHRONIC KIDNEY DISEASE STAGING PER NKF: MALE GFR INTERPRETATION: 20-49 YRS: >60 mL/min Normal 50-59 YRS: >56 mL/min Normal 60-69 YRS: >49 mL/min Normal 70-79 YRS: >42 mL/min Normal 80 and above >35 mL/min Normal FEMALE GRF INTERPRETATION: 20-39 YRS: >60 mL/min Normal 40-49 YRS: >58 mL/min Normal 50-59 YRS: >51 mL/min Normal 60-69 YRS: >45 mL/min Normal 70-79 YRS: >39 mL/min Normal 80 and above >32 mL/min Normal Na 137 mmol/L 136-145 [facility] CHRONIC KIDNEY DISEASE STAGING PER NKF: MALE GFR INTERPRETATION: 20-49 YRS: >60 mL/min Normal 50-59 YRS: >56 mL/min Normal 60-69 YRS: >49 mL/min Normal 70-79 YRS: >42 mL/min Normal 80 and above >35 mL/min Normal FEMALE GRF INTERPRETATION: 20-39 YRS: >60 mL/min Normal 40-49 YRS: >58 mL/min Normal 50-59 YRS: >51 mL/min Normal 60-69 YRS: >45 mL/min Normal 70-79 YRS: >39 mL/min Normal 80 and above >32 mL/min Normal CL 104.0 mmol/L 98.0-107.0 [facility] ([facility] CHRONIC KIDNEY DISEASE STAGING PER NKF: MALE GFR INTERPRETATION: 20-49 YRS: >60 mL/min Normal 50-59 YRS: >56 mL/min Normal 60-69 YRS: >49 mL/min Normal 70-79 YRS: >42 mL/min Normal 80 and above >35 mL/min Normal FEMALE GRF INTERPRETATION: 20-39 YRS: >60 mL/min Normal 40-49 YRS: >58 mL/min Normal 50-59 YRS: >51 mL/min Normal 60-69 YRS: >45 mL/min Normal 70-79 YRS: >39 mL/min Normal 80 and above >32 mL/min Normal Co2 19.4 mmol/L 22.0-29.0 Below low normal [facility] ([facility] CHRONIC KIDNEY DISEASE STAGING PER NKF: MALE GFR INTERPRETATION: 20-49 YRS: >60 mL/min Normal 50-59 YRS: >56 mL/min Normal 60-69 YRS: >49 mL/min Normal 70-79 YRS: >42 mL/min Normal 80 and above >35 mL/min Normal FEMALE GRF INTERPRETATION: 20-39 YRS: >60 mL/min Normal 40-49 YRS: >58 mL/min Normal 50-59 YRS: >51 mL/min Normal 60-69 YRS: >45 mL/min Normal 70-79 YRS: >39 mL/min Normal 80 and above >32 mL/min Normal K 4.3 mmol/L 3.5-5.1 [facility] ([facility] CHRONIC KIDNEY DISEASE STAGING PER NKF: MALE GFR INTERPRETATION: 20-49 YRS: >60 mL/min Normal 50-59 YRS: >56 mL/min Normal 60-69 YRS: >49 mL/min Normal 70-79 YRS: >42 mL/min Normal 80 and above >35 mL/min Normal FEMALE GRF INTERPRETATION: 20-39 YRS: >60 mL/min Normal 40-49 YRS: >58 mL/min Normal 50-59 YRS: >51 mL/min Normal 60-69 YRS: >45 mL/min Normal 70-79 YRS: >39 mL/min Normal 80 and above >32 mL/min Normal TP 6.8 g/dL 6.6-8.7 [facility] CHRONIC KIDNEY DISEASE STAGING PER NKF: MALE GFR INTERPRETATION: 20-49 YRS: >60 mL/min Normal 50-59 YRS: >56 mL/min Normal 60-69 YRS: >49 mL/min Normal 70-79 YRS: >42 mL/min Normal 80 and above >35 mL/min Normal FEMALE GRF INTERPRETATION: 20-39 YRS: >60 mL/min Normal 40-49 YRS: >58 mL/min Normal 50-59 YRS: >51 mL/min Normal 60-69 YRS: >45 mL/min Normal 70-79 YRS: >39 mL/min Normal 80 and above >32 mL/min Normal CA 9.2 mg/dL 8.6-10.2 [facility] ([facility] CHRONIC KIDNEY DISEASE STAGING PER NKF: MALE GFR INTERPRETATION: 20-49 YRS: >60 mL/min Normal 50-59 YRS: >56 mL/min Normal 60-69 YRS: >49 mL/min Normal 70-79 YRS: >42 mL/min Normal 80 and above >35 mL/min Normal FEMALE GRF INTERPRETATION: 20-39 YRS: >60 mL/min Normal 40-49 YRS: >58 mL/min Normal 50-59 YRS: >51 mL/min Normal 60-69 YRS: >45 mL/min Normal 70-79 YRS: >39 mL/min Normal 80 and above >32 mL/min Normal A/G Ratio 2.1 Calc [facility] ([facility] CHRONIC KIDNEY DISEASE STAGING PER NKF: MALE GFR INTERPRETATION: 20-49 YRS: >60 mL/min Normal 50-59 YRS: >56 mL/min Normal 60-69 YRS: >49 mL/min Normal 70-79 YRS: >42 mL/min Normal 80 and above >35 mL/min Normal FEMALE GRF INTERPRETATION: 20-39 YRS: >60 mL/min Normal 40-49 YRS: >58 mL/min Normal 50-59 YRS: >51 mL/min Normal 60-69 YRS: >45 mL/min Normal 70-79 YRS: >39 mL/min Normal 80 and above >32 mL/min Normal Alb 4.7 g/dL 3.4-4.8 [facility] ([facility] CHRONIC KIDNEY DISEASE STAGING PER NKF: MALE GFR INTERPRETATION: 20-49 YRS: >60 mL/min Normal 50-59 YRS: >56 mL/min Normal 60-69 YRS: >49 mL/min Normal 70-79 YRS: >42 mL/min Normal 80 and above >35 mL/min Normal FEMALE GRF INTERPRETATION: 20-39 YRS: >60 mL/min Normal 40-49 YRS: >58 mL/min Normal 50-59 YRS: >51 mL/min Normal 60-69 YRS: >45 mL/min Normal 70-79 YRS: >39 mL/min Normal 80 and above >32 mL/min Normal Globulin 2.2 Calc [facility] CHRONIC KIDNEY DISEASE STAGING PER NKF: MALE GFR INTERPRETATION: 20-49 YRS: >60 mL/min Normal 50-59 YRS: >56 mL/min Normal 60-69 YRS: >49 mL/min Normal 70-79 YRS: >42 mL/min Normal 80 and above >35 mL/min Normal FEMALE GRF INTERPRETATION: 20-39 YRS: >60 mL/min Normal 40-49 YRS: >58 mL/min Normal 50-59 YRS: >51 mL/min Normal 60-69 YRS: >45 mL/min Normal 70-79 YRS: >39 mL/min Normal 80 and above >32 mL/min Normal Alt (SGPT) 17 U/L 0-41 [facility] ([facility] CHRONIC KIDNEY DISEASE STAGING PER NKF: MALE GFR INTERPRETATION: 20-49 YRS: >60 mL/min Normal 50-59 YRS: >56 mL/min Normal 60-69 YRS: >49 mL/min Normal 70-79 YRS: >42 mL/min Normal 80 and above >35 mL/min Normal FEMALE GRF INTERPRETATION: 20-39 YRS: >60 mL/min Normal 40-49 YRS: >58 mL/min Normal 50-59 YRS: >51 mL/min Normal 60-69 YRS: >45 mL/min Normal 70-79 YRS: >39 mL/min Normal 80 and above >32 mL/min Normal Alp 59.8 U/L 35-129 [facility] ([facility] CHRONIC KIDNEY DISEASE STAGING PER NKF: MALE GFR INTERPRETATION: 20-49 YRS: >60 mL/min Normal 50-59 YRS: >56 mL/min Normal 60-69 YRS: >49 mL/min Normal 70-79 YRS: >42 mL/min Normal 80 and above >35 mL/min Normal FEMALE GRF INTERPRETATION: 20-39 YRS: >60 mL/min Normal 40-49 YRS: >58 mL/min Normal 50-59 YRS: >51 mL/min Normal 60-69 YRS: >45 mL/min Normal 70-79 YRS: >39 mL/min Normal 80 and above >32 mL/min Normal Osmolality-Calculated 273.0 Calc MED ENT ([facility] CHRONIC KIDNEY DISEASE STAGING PER NKF: MALE GFR INTERPRETATION: 20-49 YRS: >60 mL/min Normal 50-59 YRS: >56 mL/min Normal 60-69 YRS: >49 mL/min Normal 70-79 YRS: >42 mL/min Normal 80 and above >35 mL/min Normal FEMALE GRF INTERPRETATION: 20-39 YRS: >60 mL/min Normal 40-49 YRS: >58 mL/min Normal 50-59 YRS: >51 mL/min Normal 60-69 YRS: >45 mL/min Normal 70-79 YRS: >39 mL/min Normal 80 and above >32 mL/min Normal Tbili 0.21 mg/dL 0.0-1.2 [facility] ([facility] CHRONIC KIDNEY DISEASE STAGING PER NKF: MALE GFR INTERPRETATION: 20-49 YRS: >60 mL/min Normal 50-59 YRS: >56 mL/min Normal 60-69 YRS: >49 mL/min Normal 70-79 YRS: >42 mL/min Normal 80 and above >35 mL/min Normal FEMALE GRF INTERPRETATION: 20-39 YRS: >60 mL/min Normal 40-49 YRS: >58 mL/min Normal 50-59 YRS: >51 mL/min Normal 60-69 YRS: >45 mL/min Normal 70-79 YRS: >39 mL/min Normal 80 and above >32 mL/min Normal Ast (Sgot) 17 U/L 0-40 [facility] CHRONIC KIDNEY DISEASE STAGING PER NKF: MALE GFR INTERPRETATION: 20-49 YRS: >60 mL/min Normal 50-59 YRS: >56 mL/min Normal 60-69 YRS: >49 mL/min Normal 70-79 YRS: >42 mL/min Normal 80 and above >35 mL/min Normal FEMALE GRF INTERPRETATION: 20-39 YRS: >60 mL/min Normal 40-49 YRS: >58 mL/min Normal 50-59 YRS: >51 mL/min Normal 60-69 YRS: >45 mL/min Normal 70-79 YRS: >39 mL/min Normal 80 and above >32 mL/min Normal eGFR 113 # [facility] ( [facility] CHRONIC KIDNEY DISEASE STAGING PER NKF: MALE GFR INTERPRETATION: 20-49 YRS: >60 mL/min Normal 50-59 YRS: >56 mL/min Normal 60-69 YRS: >49 mL/min Normal 70-79 YRS: >42 mL/min Normal 80 and above >35 mL/min Normal FEMALE GRF INTERPRETATION: 20-39 YRS: >60 mL/min Normal 40-49 YRS: >58 mL/min Normal 50-59 YRS: >51 mL/min Normal 60-69 YRS: >45 mL/min Normal 70-79 YRS: >39 mL/min Normal 80 and above >32 mL/min Normal Anion Gap 18 mmol/L [facility] CHRONIC KIDNEY DISEASE STAGING PER NKF: MALE GFR INTERPRETATION: 20-49 YRS: >60 mL/min Normal 50-59 YRS: >56 mL/min Normal 60-69 YRS: >49 mL/min Normal 70-79 YRS: >42 mL/min Normal 80 and above >35 mL/min Normal FEMALE GRF INTERPRETATION: 20-39 YRS: >60 mL/min Normal 40-49 YRS: >58 mL/min Normal 50-59 YRS: >51 mL/min Normal 60-69 YRS: >45 mL/min Normal 70-79 YRS: >39 mL/min Normal 80 and above >32 mL/min Normal eGFR Non-Afr. [place] 98 # [facility] ([facility] CHRONIC KIDNEY DISEASE STAGING PER NKF: MALE GFR INTERPRETATION: 20-49 YRS: >60 mL/min Normal 50-59 YRS: >56 mL/min Normal 60-69 YRS: >49 mL/min Normal 70-79 YRS: >42 mL/min Normal 80 and above >35 mL/min Normal FEMALE GRF INTERPRETATION: 20-39 YRS: >60 mL/min Normal 40-49 YRS: >58 mL/min Normal 50-59 YRS: >51 mL/min Normal 60-69 YRS: >45 mL/min Normal 70-79 YRS: >39 mL/min Normal 80 and above >32 mL/min Normal ID Date Data Source [id number] 04/08/2021 10:39:00 AM EDT [facility] ([facility] Name Value Range Interpretation Code Description Data Karen rce(s) Supporting Document(s) Thyrotropin [Units/volume] in Serum or Plasma 0.265 ulU/mL 0. 60-4.8 Below low normal [facility] ([facility] ) ID Date Data Source [id number] 10/02/2020 02:20:00 PM EDT [facility] ([facility] [facility] Name Value Range Interpretation Code Description Data Karen rce(s) Supporting Document(s) Thyrotropin [Units/volume] in Serum or Plasma 0.476 ulU/mL 0. 60-4.8 Below low normal MEDENT ([facility] ) ID Date Data Source [id number] 10/02/2020 02:20:00 PM EDT MEDENT ([facility] Name Value Range Interpretation Code Description Data Karen rce(s) Supporting Document(s) Glu 90 mg/dL 70-110 MEDENT ([facility] CHRONIC KIDNEY DISEASE STAGING PER NKF: MALE GFR INTERPRETATION: 20-49 YRS: >60 mL/min Normal 50-59 YRS: >56 mL/min Normal 60-69 YRS: >49 mL/min Normal 70-79 YRS: >42 mL/min Normal 80 and above >35 mL/min Normal FEMALE GRF INTERPRETATION: 20-39 YRS: >60 mL/min Normal 40-49 YRS: >58 mL/min Normal 50-59 YRS: >51 mL/min Normal 60-69 YRS: >45 mL/min Normal 70-79 YRS: >39 mL/min Normal 80 and above >32 mL/min Normal BUN 10 mg/dL 8-23 MEDENT ([facility] CHRONIC KIDNEY DISEASE STAGING PER NKF: MALE GFR INTERPRETATION: 20-49 YRS: >60 mL/min Normal 50-59 YRS: >56 mL/min Normal 60-69 YRS: >49 mL/min Normal 70-79 YRS: >42 mL/min Normal 80 and above >35 mL/min Normal FEMALE GRF INTERPRETATION: 20-39 YRS: >60 mL/min Normal 40-49 YRS: >58 mL/min Normal 50-59 YRS: >51 mL/min Normal 60-69 YRS: >45 mL/min Normal 70-79 YRS: >39 mL/min Normal 80 and above >32 mL/min Normal BUN/Creatinine Ratio 12.9 CALC MEDENT ([facility] CHRONIC KIDNEY DISEASE STAGING PER NKF: MALE GFR INTERPRETATION: 20-49 YRS: >60 mL/min Normal 50-59 YRS: >56 mL/min Normal 60-69 YRS: >49 mL/min Normal 70-79 YRS: >42 mL/min Normal 80 and above >35 mL/min Normal FEMALE GRF INTERPRETATION: 20-39 YRS: >60 mL/min Normal 40-49 YRS: >58 mL/min Normal 50-59 YRS: >51 mL/min Normal 60-69 YRS: >45 mL/min Normal 70-79 YRS: >39 mL/min Normal 80 and above >32 mL/min Normal Creat 0.8 mg/dL 0.5-1.0 MEDENT ([facility] CHRONIC KIDNEY DISEASE STAGING PER NKF: MALE GFR INTERPRETATION: 20-49 YRS: >60 mL/min Normal 50-59 YRS: >56 mL/min Normal 60-69 YRS: >49 mL/min Normal 70-79 YRS: >42 mL/min Normal 80 and above >35 mL/min Normal FEMALE GRF INTERPRETATION: 20-39 YRS: >60 mL/min Normal 40-49 YRS: >58 mL/min Normal 50-59 YRS: >51 mL/min Normal 60-69 YRS: >45 mL/min Normal 70-79 YRS: >39 mL/min Normal 80 and above >32 mL/min Normal K 4.1 mmol/L 3.5-5.1 JAVIER ([facility] CHRONIC KIDNEY DISEASE STAGING PER NKF: MALE GFR INTERPRETATION: 20-49 YRS: >60 mL/min Normal 50-59 YRS: >56 mL/min Normal 60-69 YRS: >49 mL/min Normal 70-79 YRS: >42 mL/min Normal 80 and above >35 mL/min Normal FEMALE GRF INTERPRETATION: 20-39 YRS: >60 mL/min Normal 40-49 YRS: >58 mL/min Normal 50-59 YRS: >51 mL/min Normal 60-69 YRS: >45 mL/min Normal 70-79 YRS: >39 mL/min Normal 80 and above >32 mL/min Normal Na 137 mmol/L 136-145 JAVIER ([facility] CHRONIC KIDNEY DISEASE STAGING PER NKF: MALE GFR INTERPRETATION: 20-49 YRS: >60 mL/min Normal 50-59 YRS: >56 mL/min Normal 60-69 YRS: >49 mL/min Normal 70-79 YRS: >42 mL/min Normal 80 and above >35 mL/min Normal FEMALE GRF INTERPRETATION: 20-39 YRS: >60 mL/min Normal 40-49 YRS: >58 mL/min Normal 50-59 YRS: >51 mL/min Normal 60-69 YRS: >45 mL/min Normal 70-79 YRS: >39 mL/min Normal 80 and above >32 mL/min Normal CL 102.8 mmol/L 98.0-107.0 MEDFRANDY ([facility] CHRONIC KIDNEY DISEASE STAGING PER NKF: MALE GFR INTERPRETATION: 20-49 YRS: >60 mL/min Normal 50-59 YRS: >56 mL/min Normal 60-69 YRS: >49 mL/min Normal 70-79 YRS: >42 mL/min Normal 80 and above >35 mL/min Normal FEMALE GRF INTERPRETATION: 20-39 YRS: >60 mL/min Normal 40-49 YRS: >58 mL/min Normal 50-59 YRS: >51 mL/min Normal 60-69 YRS: >45 mL/min Normal 70-79 YRS: >39 mL/min Normal 80 and above >32 mL/min Normal CA 9.0 mg/dL 8.6-10.2 MEDENT ([facility] CHRONIC KIDNEY DISEASE STAGING PER NKF: MALE GFR INTERPRETATION: 20-49 YRS: >60 mL/min Normal 50-59 YRS: >56 mL/min Normal 60-69 YRS: >49 mL/min Normal 70-79 YRS: >42 mL/min Normal 80 and above >35 mL/min Normal FEMALE GRF INTERPRETATION: 20-39 YRS: >60 mL/min Normal 40-49 YRS: >58 mL/min Normal 50-59 YRS: >51 mL/min Normal 60-69 YRS: >45 mL/min Normal 70-79 YRS: >39 mL/min Normal 80 and above >32 mL/min Normal Co2 23.6 mmol/L 22.0-29.0 MEDENT ([facility] CHRONIC KIDNEY DISEASE STAGING PER NKF: MALE GFR INTERPRETATION: 20-49 YRS: >60 mL/min Normal 50-59 YRS: >56 mL/min Normal 60-69 YRS: >49 mL/min Normal 70-79 YRS: >42 mL/min Normal 80 and above >35 mL/min Normal FEMALE GRF INTERPRETATION: 20-39 YRS: >60 mL/min Normal 40-49 YRS: >58 mL/min Normal 50-59 YRS: >51 mL/min Normal 60-69 YRS: >45 mL/min Normal 70-79 YRS: >39 mL/min Normal 80 and above >32 mL/min Normal TP 7.2 g/dL 6.6-8.7 MEDENT ([facility] CHRONIC KIDNEY DISEASE STAGING PER NKF: MALE GFR INTERPRETATION: 20-49 YRS: >60 mL/min Normal 50-59 YRS: >56 mL/min Normal 60-69 YRS: >49 mL/min Normal 70-79 YRS: >42 mL/min Normal 80 and above >35 mL/min Normal FEMALE GRF INTERPRETATION: 20-39 YRS: >60 mL/min Normal 40-49 YRS: >58 mL/min Normal 50-59 YRS: >51 mL/min Normal 60-69 YRS: >45 mL/min Normal 70-79 YRS: >39 mL/min Normal 80 and above >32 mL/min Normal Alb 4.9 g/dL 3.4-4.8 Above high normal MEDFRANDY ([facility] CHRONIC KIDNEY DISEASE STAGING PER NKF: MALE GFR INTERPRETATION: 20-49 YRS: >60 mL/min Normal 50-59 YRS: >56 mL/min Normal 60-69 YRS: >49 mL/min Normal 70-79 YRS: >42 mL/min Normal 80 and above >35 mL/min Normal FEMALE GRF INTERPRETATION: 20-39 YRS: >60 mL/min Normal 40-49 YRS: >58 mL/min Normal 50-59 YRS: >51 mL/min Normal 60-69 YRS: >45 mL/min Normal 70-79 YRS: >39 mL/min Normal 80 and above >32 mL/min Normal Globulin 2.4 CALC MEDENT ([facility] CHRONIC KIDNEY DISEASE STAGING PER NKF: MALE GFR INTERPRETATION: 20-49 YRS: >60 mL/min Normal 50-59 YRS: >56 mL/min Normal 60-69 YRS: >49 mL/min Normal 70-79 YRS: >42 mL/min Normal 80 and above >35 mL/min Normal FEMALE GRF INTERPRETATION: 20-39 YRS: >60 mL/min Normal 40-49 YRS: >58 mL/min Normal 50-59 YRS: >51 mL/min Normal 60-69 YRS: >45 mL/min Normal 70-79 YRS: >39 mL/min Normal 80 and above >32 mL/min Normal A/G Ratio 2.1 CALC MEDENT ([facility] CHRONIC KIDNEY DISEASE STAGING PER NKF: MALE GFR INTERPRETATION: 20-49 YRS: >60 mL/min Normal 50-59 YRS: >56 mL/min Normal 60-69 YRS: >49 mL/min Normal 70-79 YRS: >42 mL/min Normal 80 and above >35 mL/min Normal FEMALE GRF INTERPRETATION: 20-39 YRS: >60 mL/min Normal 40-49 YRS: >58 mL/min Normal 50-59 YRS: >51 mL/min Normal 60-69 YRS: >45 mL/min Normal 70-79 YRS: >39 mL/min Normal 80 and above >32 mL/min Normal Ast (Sgot) 16 U/L 0-40 [facility] CHRONIC KIDNEY DISEASE STAGING PER NKF: MALE GFR INTERPRETATION: 20-49 YRS: >60 mL/min Normal 50-59 YRS: >56 mL/min Normal 60-69 YRS: >49 mL/min Normal 70-79 YRS: >42 mL/min Normal 80 and above >35 mL/min Normal FEMALE GRF INTERPRETATION: 20-39 YRS: >60 mL/min Normal 40-49 YRS: >58 mL/min Normal 50-59 YRS: >51 mL/min Normal 60-69 YRS: >45 mL/min Normal 70-79 YRS: >39 mL/min Normal 80 and above >32 mL/min Normal Alp 65.5 U/L 35-129 [facility] CHRONIC KIDNEY DISEASE STAGING PER NKF: MALE GFR INTERPRETATION: 20-49 YRS: >60 mL/min Normal 50-59 YRS: >56 mL/min Normal 60-69 YRS: >49 mL/min Normal 70-79 YRS: >42 mL/min Normal 80 and above >35 mL/min Normal FEMALE GRF INTERPRETATION: 20-39 YRS: >60 mL/min Normal 40-49 YRS: >58 mL/min Normal 50-59 YRS: >51 mL/min Normal 60-69 YRS: >45 mL/min Normal 70-79 YRS: >39 mL/min Normal 80 and above >32 mL/min Normal Alt (SGPT) 15 U/L 0-41 MEDENT ([facility] CHRONIC KIDNEY DISEASE STAGING PER NKF: MALE GFR INTERPRETATION: 20-49 YRS: >60 mL/min Normal 50-59 YRS: >56 mL/min Normal 60-69 YRS: >49 mL/min Normal 70-79 YRS: >42 mL/min Normal 80 and above >35 mL/min Normal FEMALE GRF INTERPRETATION: 20-39 YRS: >60 mL/min Normal 40-49 YRS: >58 mL/min Normal 50-59 YRS: >51 mL/min Normal 60-69 YRS: >45 mL/min Normal 70-79 YRS: >39 mL/min Normal 80 and above >32 mL/min Normal Tbili 0.19 mg/dL 0.0-1.2 MEDENT ([facility] CHRONIC KIDNEY DISEASE STAGING PER NKF: MALE GFR INTERPRETATION: 20-49 YRS: >60 mL/min Normal 50-59 YRS: >56 mL/min Normal 60-69 YRS: >49 mL/min Normal 70-79 YRS: >42 mL/min Normal 80 and above >35 mL/min Normal FEMALE GRF INTERPRETATION: 20-39 YRS: >60 mL/min Normal 40-49 YRS: >58 mL/min Normal 50-59 YRS: >51 mL/min Normal 60-69 YRS: >45 mL/min Normal 70-79 YRS: >39 mL/min Normal 80 and above >32 mL/min Normal Osmolality-Calculated 273.0 CALC MED ENT ([facility] CHRONIC KIDNEY DISEASE STAGING PER NKF: MALE GFR INTERPRETATION: 20-49 YRS: >60 mL/min Normal 50-59 YRS: >56 mL/min Normal 60-69 YRS: >49 mL/min Normal 70-79 YRS: >42 mL/min Normal 80 and above >35 mL/min Normal FEMALE GRF INTERPRETATION: 20-39 YRS: >60 mL/min Normal 40-49 YRS: >58 mL/min Normal 50-59 YRS: >51 mL/min Normal 60-69 YRS: >45 mL/min Normal 70-79 YRS: >39 mL/min Normal 80 and above >32 mL/min Normal Anion Gap 15 mmol/L [facility] CHRONIC KIDNEY DISEASE STAGING PER NKF: MALE GFR INTERPRETATION: 20-49 YRS: >60 mL/min Normal 50-59 YRS: >56 mL/min Normal 60-69 YRS: >49 mL/min Normal 70-79 YRS: >42 mL/min Normal 80 and above >35 mL/min Normal FEMALE GRF INTERPRETATION: 20-39 YRS: >60 mL/min Normal 40-49 YRS: >58 mL/min Normal 50-59 YRS: >51 mL/min Normal 60-69 YRS: >45 mL/min Normal 70-79 YRS: >39 mL/min Normal 80 and above >32 mL/min Normal eGFR 113 # MEDENT ( [facility] CHRONIC KIDNEY DISEASE STAGING PER NKF: MALE GFR INTERPRETATION: 20-49 YRS: >60 mL/min Normal 50-59 YRS: >56 mL/min Normal 60-69 YRS: >49 mL/min Normal 70-79 YRS: >42 mL/min Normal 80 and above >35 mL/min Normal FEMALE GRF INTERPRETATION: 20-39 YRS: >60 mL/min Normal 40-49 YRS: >58 mL/min Normal 50-59 YRS: >51 mL/min Normal 60-69 YRS: >45 mL/min Normal 70-79 YRS: >39 mL/min Normal 80 and above >32 mL/min Normal eGFR Non-Afr. [place] 98 # JAVIER ([facility] CHRONIC KIDNEY DISEASE STAGING PER NKF: MALE GFR INTERPRETATION: 20-49 YRS: >60 mL/min Normal 50-59 YRS: >56 mL/min Normal 60-69 YRS: >49 mL/min Normal 70-79 YRS: >42 mL/min Normal 80 and above >35 mL/min Normal FEMALE GRF INTERPRETATION: 20-39 YRS: >60 mL/min Normal 40-49 YRS: >58 mL/min Normal 50-59 YRS: >51 mL/min Normal 60-69 YRS: >45 mL/min Normal 70-79 YRS: >39 mL/min Normal 80 and above >32 mL/min Normal ID Date Data Source [id number] 06/26/2020 12:45:00 PM EST JAVIER ([facility] Name Value Range Interpretation Code Description Data Karen rce(s) Supporting Document(s) Laboratory test finding (navigational concept) Laboratory test result JAVIER ([facility] Test: COVID-19 Nasal/Naspharynx Result: NOT DETECTED Reference Units: Not detected Note: Please consider re-collection of a new specimen, if clinically indicated. Note: The COVID-19 assay is under Emergency Use Authorization(EUA) by the U.S. Food and Drug Administration. [employer] is designated as a high complexity laboratory by the Clinical Laboratory Improvement Amendments of 1988(CLIA) and is qualified to perform this test. ASSAY INFORMATION: Real Time RT-PCR ID Date Data Source [id number] 06/26/2020 12:00:00 AM EST [facility] Name Value Range Interpretation Code Description Data Karen rce(s) Supporting Document(s) SARS-CoV-2 (COVID-19) RNA [Presence] in Respiratory specimen by RALPH with probe detection Not Detected [facility] This lab was ordered by [facility] and reported by [employer]. Procedure Social History No Information Vital Signs ID Date Data Source UNK Name Value Range Interpretation Code Description Data Source(s) Respiratory rate 16 /min 16 /min MEDENT ( [facility] Body weight 190.00 [lb_av] 190.00 [lb_av] MEDEN T ([facility] Oxygen saturation in Arterial blood by Pulse oximetry 98 % 98 % MEDFRANDY ([facility] Diastolic blood pressure 68 mm[Hg] 68 mm[Hg] MEDENT ([facility] Body temperature 97.9 [degF] 97.9 [degF] MEDENT ([facility] Heart rate 79 /min 79 /min MEDENT ([facility] Body height 66 [in_i] 66 [in_i] MEDENT ([facility] 5'6" [place] body weight 130 [lb_av] 130 [lb_av] MEDEN T ([facility] Systolic blood pressure 122 mm[Hg] 122 mm[Hg] KENNETH ([facility] Body mass index (BMI) [Ratio] 30.7 kg/m2 30.7 k g/m2 MEDENT ([facility] Diastolic blood pressure 74 mm[Hg] 74 mm[Hg] MEDENT ([facility] Oxygen saturation in Arterial blood by Pulse oximetry 98 % 98 % MEDFRANDY ([facility] Systolic blood pressure 124 mm[Hg] 124 mm[Hg] M KENNETH ([facility] Body weight 184.00 [lb_av] 184.00 [lb_av] MEDEN T ([facility] [place] body weight 130 [lb_av] 130 [lb_av] MEDEN T ([facility] Body temperature 98.1 [degF] 98.1 [degF] MEDENT ([facility] Heart rate 64 /min 64 /min MEDENT ([facility] Respiratory rate 16 /min 16 /min MEDENT ( [facility] Body height 66 [in_i] 66 [in_i] MEDENT ([facility] 5'6" Body mass index (BMI) [Ratio] 29.7 kg/m2 29.7 k g/m2 MEDENT ([facility]
--- OUTSIDE RECORDS SUMMARY | 2021-05-06 16:38 | CCD | Continuity of Care Document ---
Author Author Luis MANN M.D. Organization Unknown Address [address] [address] Phone [phone] Problems Active Problems Provider Date Depressive disorder Sirena Blue [facility]- Onset: 1 Anxiety state Sirena Blue [facility]- Onset: 1 Social History Type Date Description Comments Sex Unknown Tobacco Use Start: Unknown Patient has never smoked Allergies and adverse reactions Description No Known Drug Allergies Medications Active Medications SIG Qnty Indications Ordering Provide r Date Escitalopram Oxalate 10mg Tablets take one tablet by mouth every day 90tabs Art Mann M.D . 08/16/2019 Vitamin D 25mcg (1000 Ut) Tablets 1 by mouth every day OTC Unknown Immunizations CPT Code Status Date Vaccine Lot # [id number] Given 04/25/2008 PPD Tuberculosis Intradermal 44334 Given 04/16/2001 Hepatitis B Immunization Ped /Adolescent 3 Dose Schedule 88616 Given 12/18/2000 Hepatitis B Immunization Ped /Adolescent 3 Dose Schedule 59821 Given 11/19/2000 Hepatitis B Immunization Ped /Adolescent 3 Dose Schedule 77417 Given 02/28/1999 (DT) Diphtheria/ Tetanus Im Individuals Younger Than 7 Years Old Vital Signs Date Vital Result Comment 04/08/2021 10:21am BP Systolic 122 mmHg BP Diastolic 68 mmHg Body Temperature 97.9 F Heart Rate 79 /min Respiratory Rate 16 /min Height 66 inches 5'6" Weight 190.00 lb [place] Body Weight 130 lb BMI (Body Mass Index) 30.7 kg/m2 O2 % BldC Oximetry 98 % 10/02/2020 2:07pm BP Systolic 124 mmHg BP Diastolic 74 mmHg Body Temperature 98.1 F Heart Rate 64 /min Respiratory Rate 16 /min Height 66 inches 5'6" Weight 184.00 lb [place] Body Weight 130 lb BMI (Body Mass Index) 29.7 kg/m2 O2 % BldC Oximetry 98 % Results Test Acquired Date Facility Test Result H/L Range Note Laboratory test finding 04/08/2021 [facility] TSH 0.265 ulU/mL Low 0.60 - 4.8 CMP 04/08/2021 [facility] Glu 89 mg/dL 70 - 110 1 BUN 11 mg/dL 8 - 23 Creat 0.8 mg/dL 0.5 - 1.0 BUN/Creatinine Ratio 14.6 Calc Na 137 mmol/L 136 - 145 K 4.3 mmol/L 3.5 - 5.1 CL 104.0 mmol/L 98.0 - 107.0 Co2 19.4 mmol/L Low 22.0 - 29.0 CA 9.2 mg/dL 8.6 - 10.2 TP 6.8 g/dL 6.6 - 8.7 Alb 4.7 g/dL 3.4 - 4.8 A/G Ratio 2.1 Calc Globulin 2.2 Calc Alp 59.8 U/L 35 - 129 Alt (SGPT) 17 U/L 0 - 41 Ast (Sgot) 17 U/L 0 - 40 Tbili 0.21 mg/dL 0.0 - 1.2 Osmolality-Calculated 273.0 Calc Anion Gap 18 mmol/L eGFR 113 # Calc 2 eGFR Non-Afr. Jamaican 98 # Calc 3 1 CHRONIC KIDNEY DISEASE STAGI NG PER NKF: MALE GFR INTERPRETATION: 20-49 YRS: [...] Normal 80 and above >32 mL/min Normal 2 CKD-EPI 3 CKD-EPI Procedures Date Code Description Status 04/08/2021 50558 Office/Outpatient Established Mo d MDM 30-39 Min Completed Medical Devices Description No Information Available Encounters Type Date Location Provider Dx Diagnosis Office Visit 04/08/2021 10:20a [facility] Art Mann M. D. F41.9 Anxiety disorder, unspecified E05.90 Thyrotoxicosis, unsp without thyrotoxic crisis or storm Assessments Date Code Description Provider 04/08/2021 F41.9 Anxiety disorder, unspecified Mo Art sierra M.D. 04/08/2021 E05.90 Thyrotoxicosis, unsp ecified without thyrotoxic crisis or storm Art Mann M.D. Plan of Treatment Future Appointment(s):* 10/07/2021 10:20 am - Art Mann M.D. at [facility] 08/17/2003 - Bhavani Conroy FNP-* V20.2 Routine Infant/Child Health Check * 706.1 Acne Other * All * New Medication:* Cleocin Pledgets - apply to clean face bid * Tetracycline 500 mg - 1 po bid Functional Status Description No Information Available Mental Status Description No Information Available Referrals Description No Information Available
--- OUTSIDE RECORDS SUMMARY | 2021-05-06 16:38 | CCD | Continuity of Care Document ---
Author Author Luis MANN M.D. Organization Unknown Address [address] [address] Phone [phone] Problems Active Problems Provider Date Depressive disorder Sirena Blue [facility]- Onset: 1 Anxiety state Sirena Blue [facility]- Onset: 1 Social History Type Date Description [...] CPT Code Status Date Vaccine Lot # [id number] Given 04/25/2008 PPD Tuberculosis Intradermal 36159 Given 04/16/2001 Hepatitis B Immunization Ped /Adolescent 3 Dose Schedule 81687 Given 12/18/2000 Hepatitis B Immunization Ped /Adolescent 3 Dose Schedule 64476 Given 11/19/2000 Hepatitis B Immunization Ped /Adolescent 3 Dose Schedule 86675 Given 02/28/1999 (DT) Diphtheria/ Tetanus Im Individuals Younger Than 7 Years Old Vital Signs Date Vital Result Comment 04/08/2021 10:21am BP Systolic 122 mmHg BP Diastolic 68 mmHg Body Temperature 97.9 F Heart Rate 79 /min Respiratory Rate 16 /min Height 66 inches 5'6" Weight 190.00 lb [place] Body Weight 130 lb BMI (Body Mass Index) 30.7 kg/m2 O2 % BldC Oximetry 98 % 10/02/2020 2:07pm BP Systolic 124 mmHg BP Diastolic 74 mmHg Body Temperature 98.1 F Heart Rate 64 /min Respiratory Rate 16 /min Height 66 inches 5'6" Weight 184.00 lb [place] Body Weight 130 lb BMI (Body Mass Index) 29.7 kg/m2 O2 % BldC Oximetry 98 % Results Test Acquired Date Facility Test Result H/L Range Note Laboratory test finding 04/08/2021 [facility] TSH <pending> CMP 04/08/2021 [facility] Glu 89 mg/dL 70 [...] eGFR 113 # Calc 2 eGFR Non-Afr. [place] 98 # Calc 3 1 CHRONIC KIDNEY [...] CKD-EPI Procedures Date Code Description Status 04/08/2021 30502 Office/Outpatient Established Mo d MDM 30-39 Min Completed Medical Devices Description No Information Available Encounters Type Date Location Provider Dx Diagnosis Office Visit 04/08/2021 10:20a [facility][Note 3] Art Mann M. D. F41.9 Anxiety disorder, unspecified E05.90 Thyrotoxicosis, unsp without thyrotoxic crisis or storm Assessments Date Code Description Provider 04/08/2021 F41.9 Anxiety disorder, unspecified Mi Art sierra M.D. 04/08/2021 E05.90 Thyrotoxicosis, unsp ecified without thyrotoxic crisis or storm Art Mann M.D. Plan of Treatment Future Appointment(s):* 10/07/2021 10:20 am - Art Mann M.D. at [facility][Note 3] 08/17/2003 - Bhavani Conroy [facility]* V20.2 Routine /Child Health Check * 706.1 Acne Other * All * New Medication:* Cleocin Pledgets - apply to clean face bid * Tetracycline 500 mg - 1 po bid Functional Status Description No Information Available Mental Status Description No Information Available Referrals Description No Information Available
--- OUTSIDE RECORDS SUMMARY | 2021-05-06 16:38 | CCD | Continuity of Care Document ---
Author Author Luis MANN M.D. Organization Unknown Address [address] [address] Phone [phone] Problems Active Problems Provider Date Depressive disorder Sirena Blue [facility]- Onset: 1 Anxiety state Sirena Blue [facility]- Onset: 1 Social History Type Date Description [...] CPT Code Status Date Vaccine Lot # [id number] Given 04/25/2008 PPD Tuberculosis Intradermal 70559 Given 04/16/2001 Hepatitis B Immunization Ped /Adolescent 3 Dose Schedule 94480 Given 12/18/2000 Hepatitis B Immunization Ped /Adolescent 3 Dose Schedule 68226 Given 11/19/2000 Hepatitis B Immunization Ped /Adolescent 3 Dose Schedule 52443 Given 02/28/1999 (DT) Diphtheria/ Tetanus Im Individuals Younger Than 7 Years Old Vital Signs Date Vital Result Comment 04/08/2021 10:21am BP Systolic 122 mmHg BP Diastolic 68 mmHg Body Temperature 97.9 F Heart Rate 79 /min Respiratory Rate 16 /min Height 66 inches 5'6" Weight 190.00 lb [place] Body Weight 130 lb BMI (Body Mass Index) 30.7 kg/m2 O2 % BldC Oximetry 98 % 10/02/2020 2:07pm BP Systolic 124 mmHg BP Diastolic 74 mmHg Body Temperature 98.1 F Heart Rate 64 /min Respiratory Rate 16 /min Height 66 inches 5'6" Weight 184.00 lb [place] Body Weight 130 lb BMI (Body Mass [...] eGFR 113 # Calc 2 eGFR Non-Afr. [place]ag[place] 98 # Calc 3 1 CHRONIC KIDNEY [...] CKD-EPI Procedures Date Code Description Status 04/08/2021 15696 Office/Outpatient Established Mo d MDM 30-39 Min Completed Medical Devices Description No Information Available Encounters Type Date Location Provider Dx Diagnosis Office Visit 04/08/2021 10:20a [facility] Art Mann M. D. F41.9 Anxiety disorder, unspecified E05.90 Thyrotoxicosis, unsp without thyrotoxic crisis or storm Assessments Date Code Description Provider 04/08/2021 F41.9 Anxiety disorder, unspecified Mi Art sierra M.D. 04/08/2021 E05.90 Thyrotoxicosis, unsp ecified without thyrotoxic crisis or storm Art Mann M.D. Plan of Treatment Future Appointment(s):* 10/07/2021 10:20 am - Art Mann M.D. at [facility] 08/17/2003 - Bhavani Conroy [facility]* V20.2 Routine /Child Health Check * 706.1 Acne Other * All * New Medication:* Cleocin Pledgets - apply to clean face bid * Tetracycline 500 mg - 1 po bid Functional Status Description No Information Available Mental Status Description No Information Available Referrals Description No Information Available
--- OUTSIDE RECORDS SUMMARY | 2021-05-06 16:38 | CCD | Continuity of Care Document ---
Author Author Luis MANN M.D. Organization Unknown Address [address] [address] Phone [phone] Problems Active Problems Provider Date Depressive disorder Sirena Blue [facility]- Onset: 1 Anxiety state Sirena Blue [facility]- Onset: 1 Social History Type [...] CPT Code Status Date Vaccine Lot # [id number] Given 04/25/2008 PPD Tuberculosis Intradermal 62021 Given 04/16/2001 Hepatitis B Immunization Ped /Adolescent 3 Dose Schedule 64558 Given 12/18/2000 Hepatitis B Immunization Ped /Adolescent 3 Dose Schedule 13521 Given 11/19/2000 Hepatitis B Immunization Ped /Adolescent 3 Dose Schedule 12287 Given 02/28/1999 (DT) Diphtheria/ Tetanus Im Individuals Younger Than 7 Years Old Vital Signs Date Vital Result Comment 04/08/2021 10:21am BP Systolic 122 mmHg BP Diastolic 68 mmHg Body Temperature 97.9 F Heart Rate 79 /min Respiratory Rate 16 /min Height 66 inches 5'6" Weight 190.00 lb [place] Body Weight 130 lb BMI (Body Mass Index) 30.7 kg/m2 O2 % BldC Oximetry 98 % 10/02/2020 2:07pm BP Systolic 124 mmHg BP Diastolic 74 mmHg Body Temperature 98.1 F Heart Rate 64 /min Respiratory Rate 16 /min Height 66 inches 5'6" Weight 184.00 lb [place] Body Weight 130 lb BMI (Body Mass Index) 29.7 kg/m2 O2 % BldC Oximetry 98 % Results Description No Information Available Procedures Date Code Description Status 04/08/2021 85944 Office/Outpatient Established Mo d MDM 30-39 Min Completed Medical Devices Description No Information Available Encounters Type Date Location Provider Dx Diagnosis Office Visit 04/08/2021 10:20a [facility] Art Mann M. D. F41.9 Anxiety disorder, unspecified E05.90 Thyrotoxicosis, unsp without thyrotoxic crisis or storm Assessments Date Code Description Provider 04/08/2021 F41.9 Anxiety disorder, unspecified [place] Art sierra M.D. 04/08/2021 E05.90 Thyrotoxicosis, unsp ecified without thyrotoxic crisis or storm Art Mann M.D. Plan of Treatment 08/17/2003 - Bhavani Conroy MACHINE OPERATOR ASSISTANT-* V20.2 Routine Infant/Child Health Check * 706.1 Acne Other * All * New Medication:* Cleocin Pledgets - apply to clean face bid * Tetracycline 500 mg - 1 po bid Functional Status Description No Information Available Mental Status Description No Information Available Referrals Description No Information Available
[2021-05-06] MEDS ORDERED: LEXA1TAB PO (16:39)
--- OUTSIDE RECORDS SUMMARY | 2021-05-06 20:58 | CCD ---
Author Author [facility] Organization [facility] Address Unknown Phone Unavailable Care Team Providers Care Talking Books Library Clerk Name Role Phone Tammy, Ivette DANIELP-C Unavailable Unavailabl e Tammy, [facility] DANIELP-C Unavailable Unavailabl e Tammy, [facility] DANIELP-C Unavailable Unavailabl e Tammy, [facility] Lyudmila DANIELP-C Unavailable Unavailabl e Tammy, [facility] Lyudmila DANIELP-C Unavailable Unavailabl e Tammy, [facility] DANIELP-C Unavailable Unavailabl e Tammy, Ivette DANIELP-C Unavailable Unavailabl e Tammy, [facility] DANIELP-C Unavailable Unavailabl e Tammy, [facility] DANIELP-C Unavailable Unavailabl e Tammy, [facility] DANIELP-C Unavailable Unavailabl e Tammy, [facility] DANIELP-C Unavailable Unavailabl e Tammy, Ivette Munozyce PERFORMANCE ENGINEER-C Unavailable Unavailabl e Tammy, Ivette W Maria E PERFORMANCE ENGINEER-C Unavailable Unavailabl e Tammy, Ivette W Maria E PERFORMANCE ENGINEER-C Unavailable Unavailabl e Tammy, Ivette W Maria E PERFORMANCE ENGINEER-C Unavailable Unavailabl e Tammy, Ivette W Maria E PERFORMANCE ENGINEER-C Unavailable Unavailabl e Tammy, Ivette W Maria E PERFORMANCE ENGINEER-C Unavailable Unavailabl e Tammy, Carlosinabk W Maria E PERFORMANCE ENGINEER-C Unavailable Unavailabl e Tammy, Reginabk W Maria E PERFORMANCE ENGINEER-C Unavailable Unavailabl e Tammy, Carlosinabk W Maria E PERFORMANCE ENGINEER-C Unavailable Unavailabl e Tammy, Ivette W Maria E PERFORMANCE ENGINEER-C Unavailable Unavailabl e Tammy, Ivette W Maria E PERFORMANCE ENGINEER-C Unavailable Unavailabl e Tammy, Ivette W Maria E PERFORMANCE ENGINEER-C Unavailable Unavailabl e Tammy, Ivette W Maria E PERFORMANCE ENGINEER-C Unavailable Unavailabl e Tammy, Ivette W Maria E PERFORMANCE ENGINEER-C Unavailable Unavailabl e Tammy, Ivette W Maria E PERFORMANCE ENGINEER-C Unavailable Unavailabl e Tammy, Ivette W Maria E PERFORMANCE ENGINEER-C Unavailable Unavailabl e Tammy, Ivette W Maria E PERFORMANCE ENGINEER-C Unavailable Unavailabl e Tammy, Ivette W Maria E PERFORMANCE ENGINEER-C Unavailable Unavailabl e Tammy, Ivette W Maria E PERFORMANCE ENGINEER-C Unavailable Unavailabl e Tammy, Ivette W Maria E PERFORMANCE ENGINEER-C Unavailable Unavailabl e Tammy, Regmonae W Maria E PERFORMANCE ENGINEER-C Unavailable Unavailabl Bk Hines MD Unavailable Unavailable Bk NO MD Unavailable Unavailable kB NO MD Unavailable Unavailable Bk NO MD [...] Unavailable ONEAL, H BBEA MD Unavailable Unavailable ONEAL, H BEBA MD Unavailable Unavailable ONEAL, H BEBA MD Unavailable Unavailable ONEAL, H BEBA MD Unavailable Unavailable ONEAL, H BEBA MD Unavailable Unavailable ONEAL, H BEBA MD Unavailable Unavailable ONEAL, H BEAB MD Unavailable Unavailable ONEAL, H BEBA MD [...] Unavailable ONEAL, H BEBA MD Unavailable Unavailable Re-disclosure Warning The records [...] is protected by Article 27-F of the [facility] Public Health law. If you continue you may have access to information: Regarding HIV / AIDS; Provided by facilities licensed or operated by the [facility] Office of Mental Health; or Provided by the [facility] Office for People With Developmental Disabilities. If such information is present, then the following [facility] mandated warning applies: This information has [...] law may result in a fine or halfway sentence or both. A general authorization for the release of medical or other information is NOT sufficient authorization for further disc losure. 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) Unknown Unknown Problem [facility] ([facility] Encounters Encounter Providers Location Date Indications Data Source(s ) Outpatient Attender: BEBA Castro Office 10:20:00 AM EDT [facility] ([facility] Outpatient Attender: BEBA Castro Office 02:00:00 PM EDT [facility] ([facility] Outpatient Attender: Maria E MEJIA 03/28/2020 08:14:0 0 AM [facility] Immunizations Vaccine Date Status Description Data Source(s) COVID-19 VACCINE Moderna 07/20/2020 12:00:00 AM EST completed [facility] Vaccine Series Complete: YESThis Data wa s Submitted to [facility] Via [employer]. COVID-19 VACCINE Moderna 06/20/2020 12:00:00 AM EST [facility] Complete: NOThis Data was Submitted to [facility] Via [employer]. Medications Medication Brand Name Start Date Product [...] type / Coverage type Policy ID Covered green party ID Covered green party's relationship to mercer Policy Mercer Plan Information [place] [facility] [facility] 302/307 [id number] SP [id number] SELF PAY UNAVAILABLE S UNAVAILA BLE [place] 302/307 [id number] SP [id number] [facility] [id number] [facility] [id number] [facility]-Essential Plan Commercial [id number] Self [id number] Medicaid Medigap Part B [id number] Self [id number] [facility] Health Maintenance Organization (HMO) [id number] [facility] Health Maintenance Organization (O) [id number] Self SELF PAY ONLY UNAVAILABLE SP UNAV AILABLE [facility]LY [facility] [id number] [facility] [id number] [facility] [id number] [facility] DIV [id number] SELF PAY ONLY [id number] SP [id number] Problems, Conditions, and Diagnoses Code Display Name Description Problem Type Effective Dates Data Source(s) Z11.1 Encounter for screening for respiratory tuberculosis ENCOUNTER FOR SCREENING FOR RESPIRATORY TUBERCULOSIS Diagnosis 03/28/2020 08:14:00 A M [facility] Surgeries/Procedures Procedure Description Date Indications Data Source(s) OFFICE OUTPATIENT VISIT 25 MINUTES 04/08/2021 12:00:00 AM EDT [facility] ([facility] Results ID Date Data Source [id number] 04/08/2021 10:39:00 AM EDT MED[facility] ([facility] Name Value Range Interpretation Code Description Data Karen rce(s) Supporting Document(s) BUN 11 mg/dL 8-23 [facility] ([facility] CHRONIC KIDNEY DISEASE [...] mL/min Normal Glu 89 mg/dL 70-110 MED[facility] ([facility] CHRONIC KIDNEY DISEASE [...] mL/min Normal Creat 0.8 mg/dL 0.5-1.0 MED[facility] ([facility] CHRONIC KIDNEY DISEASE STAGING [...] mL/min Normal BUN/Creatinine Ratio 14.6 Calc MEDENT ([facility] CHRONIC KIDNEY DISEASE STAGING [...] mL/min Normal Na 137 mmol/L 136-145 [facility] CHRONIC KIDNEY DISEASE STAGING [...] mL/min Normal CL 104.0 mmol/L 98.0-107.0 MEDENT ([facility] CHRONIC KIDNEY DISEASE STAGING [...] 19.4 mmol/L 22.0-29.0 Below low normal MEDENT ([facility] CHRONIC KIDNEY DISEASE STAGING [...] mL/min Normal K 4.3 mmol/L 3.5-5.1 MEDENT ([facility] CHRONIC KIDNEY DISEASE STAGING PER [...] mL/min Normal Alb 4.7 g/dL 3.4-4.8 MEDENT ([facility] CHRONIC KIDNEY DISEASE STAGING [...] >32 mL/min Normal Globulin 2.2 Calc [facility] CHRONIC KIDNEY DISEASE STAGING [...] Normal Alt (SGPT) 17 U/L 0-41 MED[facility] ([facility] CHRONIC KIDNEY DISEASE [...] mL/min Normal Alp 59.8 U/L 35-129 MED[facility] ([facility] CHRONIC KIDNEY DISEASE STAGING [...] mL/min Normal Osmolality-Calculated 273.0 Calc MED ENT ([facility] CHRONIC KIDNEY DISEASE STAGING [...] mL/min Normal Tbili 0.21 mg/dL 0.0-1.2 MEDENT ([facility] CHRONIC KIDNEY DISEASE [...] Ast (Sgot) 17 U/L 0-40 JAVIER ([facility] CHRONIC KIDNEY DISEASE STAGING PER [...] mL/min Normal Anion Gap 18 mmol/L [facility] ([facility] CHRONIC KIDNEY DISEASE STAGING [...] and above >32 mL/min Normal eGFR Non-Afr. Niuean 98 # [facility] ([facility] [...] >32 mL/min Normal ID Date Data Source [id number] 04/08/2021 10:39:00 AM EDT MEDENT ([facility] Name Value Range Interpretation Code Description Data Karen rce(s) Supporting Document(s) Thyrotropin [Units/volume] in Serum or Plasma 0.265 ulU/mL 0. 60-4.8 Below low normal MEDENT ([facility] ) ID Date Data Source [id number] 10/02/2020 02:20:00 PM EDT MEDENT ([facility] Name Value Range Interpretation Code Description Data Karen rce(s) Supporting Document(s) Thyrotropin [Units/volume] in Serum or Plasma 0.476 ulU/mL 0. 60-4.8 Below low normal MEDENT ([facility] ) ID Date Data Source [id number] 10/02/2020 02:20:00 PM EDT MEDENT ([facility] Name Value Range Interpretation Code Description Data Karen rce(s) Supporting Document(s) Glu 90 mg/dL 70-110 MED[facility] ([facility] CHRONIC KIDNEY DISEASE STAGING [...] mL/min Normal BUN 10 mg/dL 8-23 MEDENT ([facility] CHRONIC KIDNEY DISEASE [...] mL/min Normal BUN/Creatinine Ratio 12.9 CALC MEDENT ([facility] CHRONIC KIDNEY DISEASE STAGING [...] mL/min Normal Creat 0.8 mg/dL 0.5-1.0 MED[facility] ([facility] CHRONIC KIDNEY DISEASE STAGING [...] mL/min Normal K 4.1 mmol/L 3.5-5.1 JAVIER ([facility] CHRONIC KIDNEY DISEASE [...] mL/min Normal Na 137 mmol/L 136-145 JAVIER ([facility] CHRONIC KIDNEY DISEASE [...] mL/min Normal CL 102.8 mmol/L 98.0-107.0 MEDFRANDY ([facility] CHRONIC KIDNEY DISEASE [...] mL/min Normal CA 9.0 mg/dL 8.6-10.2 MEDENT ([facility] CHRONIC KIDNEY DISEASE STAGING [...] mL/min Normal Co2 23.6 mmol/L 22.0-29.0 MED[facility] ([facility] CHRONIC KIDNEY DISEASE STAGING [...] mL/min Normal TP 7.2 g/dL 6.6-8.7 MEDENT ([facility] CHRONIC KIDNEY DISEASE STAGING [...] 4.9 g/dL 3.4-4.8 Above high normal MEDFRANDY ([facility] CHRONIC KIDNEY DISEASE STAGING [...] >32 mL/min Normal Globulin 2.4 CALC MEDENT ([facility] CHRONIC KIDNEY DISEASE STAGING [...] mL/min Normal A/G Ratio 2.1 CALC MED[facility] ([facility] CHRONIC KIDNEY DISEASE STAGING [...] Normal Ast (Sgot) 16 U/L 0-40 [facility] CHRONIC KIDNEY DISEASE STAGING [...] mL/min Normal Alp 65.5 U/L 35-129 [facility] CHRONIC KIDNEY DISEASE STAGING [...] Normal Alt (SGPT) 15 U/L 0-41 [facility] CHRONIC KIDNEY DISEASE STAGING [...] mL/min Normal Tbili 0.19 mg/dL 0.0-1.2 [facility] ([facility] CHRONIC KIDNEY DISEASE STAGING [...] and above >32 mL/min Normal eGFR Non-Afr. Niuean 98 # JAVIER ([facility] CHRONIC KIDNEY DISEASE STAGING [...] >32 mL/min Normal ID Date Data Source [id number] 06/26/2020 12:45:00 PM EST JAVIER ([facility] Name Value Range Interpretation Code Description Data Karen rce(s) Supporting Document(s) Laboratory test finding (navigational concept) Laboratory test result JAVIER ([facility] Test: COVID-19 Nasal/Naspharynx Result: NOT DETECTED Reference Units: Not detected Note: Please consider re-collection of a new specimen, if clinically indicated. Note: The COVID-19 assay is under Emergency Use Authorization(EUA) by the U.S. Food and Drug Administration. [facility] is designated as a high complexity laboratory by the Clinical Laboratory Improvement Amendments of 1988(CLIA) and is qualified to perform this test. ASSAY INFORMATION: Real Time RT-PCR ID Date Data Source [id number] 06/26/2020 12:00:00 AM EST [facility] Name Value Range Interpretation Code Description Data Karen rce(s) Supporting Document(s) SARS-CoV-2 (COVID-19) RNA [Presence] in Respiratory specimen by RALPH with probe detection Not Detected [facility] This lab was ordered by [facility] and reported by [facility]. Procedure Social History No Information Vital Signs ID Date Data Source UNK Name Value Range Interpretation Code Description Data Source(s) Respiratory rate 16 /min 16 /min MEDENT ( [facility] Body weight 190.00 [lb_av] 190.00 [lb_av] MEDEN T ([facility] Oxygen saturation in Arterial blood by Pulse oximetry 98 % 98 % MEDFRANDY ([facility] Diastolic blood pressure 68 mm[Hg] 68 mm[Hg] MEDENT ([facility] Body temperature 97.9 [degF] 97.9 [degF] MEDENT ([facility] Heart rate 79 /min 79 /min [facility] ([facility] Body height 66 [in_i] 66 [in_i] MEDENT ([facility] 5'6" [place] body weight 130 [lb_av] 130 [lb_av] MEDEN T ([facility] Systolic blood pressure 122 mm[Hg] 122 mm[Hg] KENNETH ([facility] Body mass index (BMI) [Ratio] 30.7 kg/m2 30.7 k g/m2 MEDENT ([facility] Diastolic blood pressure 74 mm[Hg] 74 mm[Hg] MEDENT ([facility] Oxygen saturation in Arterial blood by Pulse oximetry 98 % 98 % MEDFRANDY ([facility] Systolic blood pressure 124 mm[Hg] 124 mm[Hg] M KENNETH ([facility] Body weight 184.00 [lb_av] 184.00 [lb_av] MEDEN T ([facility] [place] body weight 130 [lb_av] 130 [lb_av] MEDEN T ([facility] Body temperature 98.1 [degF] 98.1 [degF] MEDENT ([facility] Heart rate 64 /min 64 /min MED[facility] ([facility] Respiratory rate 16 /min 16 /min MEDENT ( [facility] Body height 66 [in_i] 66 [in_i] MEDENT ([facility] 5'6" Body mass index (BMI) [Ratio] 29.7 kg/m2 29.7 k g/m2 MEDENT ([facility]
== END 2021-05-06 21:24 | disposition home or self-care (01) ==
LOC: M ED 16:25
DX: U07.1 COVID-19 (principal); F41.9 Anxiety disorder, unspecified; F33.9 Major depressive disorder, recurrent, unspecified; Z79.899 Other long term (current) drug therapy; Z98.890 Other specified postprocedural states; Z86.14 Personal history of Methicillin resistant Staphylococcus aureus infection